=== PATIENT | male | born 1935 | race Caucasian/White ===

== ENCOUNTER 2016-05-14 05:06 | Emergency (ER) | payer MEDICARE ==
[~2016-05-14] VITALS: Ht 180.3 cm; Wt 133.2 kg
[~2016-05-14 05:06] MED LIST: ASPI81 PO; ATEN1TAB74 PO; CEFTR2P2 IV; CILO100T PO; DILA100C PO; ENAL20TA PO; GLUCTAB PO; HYDR-2768 PO; HYDR-3533 PO; OCUVTAB PO; SIMV20 PO; SITA100 PO; SUPETAB30 PO; TERA5 PO; Z.0.WALKERFRONT; [UNRECOGNIZED DRUG - OTHER] PO
[2016-05-14 05:14] VITALS: BP 157/70; PULSE 81; RESP 18; TEMP 97.7; O2SAT 95
[2016-05-14] MEDS ORDERED: SIMV80TA PO (05:44)
[2016-05-14] MEDS ORDERED: LISI-515 PO (05:44)
[2016-05-14] MEDS ORDERED: CILO100T PO (05:44)
[2016-05-14] MEDS ORDERED: GLIM2TAB PO (05:44)
[2016-05-14] MEDS ORDERED: METF1000 PO (05:44)
[2016-05-14] MEDS ORDERED: ATEN50TA PO (05:44)
[2016-05-14] MEDS ORDERED: AMLO5 PO (05:44)
[2016-05-14] MEDS ORDERED: TERA10CA3 PO (05:44)
[2016-05-14] MEDS ORDERED: DILA100C PO (05:44)
[2016-05-14] MEDS ORDERED: SITA1TAB2 PO (05:44)
[2016-05-14] MEDS ORDERED: ASPI81CH CHEW (05:44)
[2016-05-14] MEDS ORDERED: SODIUM CHLOR 0.9% 1000 ML INJ 1,000 ML IV SCH (05:45)
[2016-05-14] MEDS ORDERED: SODIUM CHLORIDE 0.9% FLUSH 5 ML FLUSH IVF PRN (05:45)
--- NOTE | 2016-05-14 05:55 | PD ---
HPI Chief Complaint: Abdominal Pain Time Seen by Provider: 05:32 Travel History International Travel<30 days: No Contact w/Intl Traveler<30days: No Traveled to known affect area: No History of Present Illness HPI The patient is an 81-year-old male that comes in per my because of constipation for an unknown amount of days. He cannot remember when his last bowel movement was but it wasn't within 3 days. He also had some urinary in that he is not urinating frequently. He states he did have some urgency but this is gone now. He denies any nausea, vomiting or diarrhea. He denies any fever. He does have a mild cough. He is to be a 3 pack a day smoker and smokes only several cigarettes daily now. It is been years since he has had a chest x-ray, he cannot remember when. A review of his old records available to me reveals he had a chest x-ray on October 2014 which showed minimal prominence of the heart in mild central pulmonary vascular congestion. He does have a history of coronary artery disease and is status post cardiac surgery. He is a [facility] patient of Dr. Medeiros. He denies any shortness of breath. His abdominal pain is minimal. He denies any bladder or abdominal distention. He had a ruptured appendix as a child but no other abdominal surgery since. PFSH Past Medical History Hx Anticoagulant Therapy: Yes Blood Disorders: No Depression: Yes Cancer: No Cardiac Catheterization: Yes Cardiovascular Problems: Yes High Cholesterol: Yes Chest Pain: Yes Coronary Artery Disease: Yes Diabetes: Yes Patient Takes Glucophage: Yes Diminished Hearing: No Endocrine: Yes Genitourinary: No Hypertension: Yes Immune Disorder: No Musculoskeletal: No Neurologic: Yes (DIZZINESS, TAKES DILANTIN) Psychiatric: Yes Reproductive: No Respiratory: No Immunizations Current: Yes Myocardial Infarction: Yes Seizures: Yes Tetanus Vaccination: Unknown Influenza Vaccination: No Past Surgical History Appendectomy: Yes Coronary Artery Bypass Graft: Yes (IN 2002) Social History Alcohol Use: Yes (OCC) Tobacco Use: Yes (04/10 PPD ) Substance Use: No Allergies-Medications (Allergen,Severity, Reaction): Coded Allergies: Neosporin (Verified Allergy, Mild, Rash, 05/14/16) Reported Meds & Prescriptions Reported Meds & Active Scripts Active Reported Simvastatin 80 Mg Tab 80 Mg PO DAILY Terazosin (Terazosin HCl) 10 Mg Cap 10 Mg PO HS Aspirin 81 Mg Chew 81 Mg CHEW DAILY Januvia (Sitagliptin Phosphate) 100 Mg Tab 100 Mg PO DAILY Atenolol 50 Mg Tab 50 Mg PO DAILY Norvasc (Amlodipine Besylate) 5 Mg Tab 5 Mg PO DAILY Cilostazol 100 Mg Tab 100 Mg PO BID Lisinopril 20 Mg Tab 20 Mg PO DAILY Metformin (Metformin HCl) 1,000 Mg Tab 1,000 Mg PO DAILY With a meal Glimepiride 2 Mg Tab 2 Mg PO BIDAC Dilantin (Phenytoin Extended) 100 Mg Cap 100 Mg PO TID [Prosterol] 1 Tab PO DAILY Review of Systems Except as stated in HPI: all other systems reviewed are Neg Physical Exam Narrative GENERAL: The patient is obese, alert, oriented 3 in minimal apparent distress dressed with his abdominal discomfort. His vital signs show blood pressure 157/ 70 but are otherwise normal. The patient appears mildly dehydrated. SKIN: Warm and dry. HEAD: Atraumatic. Normocephalic. EYES: Pupils equal and round. No scleral icterus. No injection or drainage. ENT: No nasal bleeding or discharge. Mucous membranes pink and moist. NECK: Trachea midline. No JVD. CARDIOVASCULAR: Regular rate and rhythm. No murmur appreciated. RESPIRATORY: No accessory muscle use. Scattered rhonchi are heard on the right side of the chest. The lungs are otherwise clear.. Breath sounds equal bilaterally. GASTROINTESTINAL: Abdomen soft, non-tender, nondistended. Hepatic and splenic margins not palpable. No guarding or rebound is present. There is a well- healed appendectomy scar and apparently this is his only surgery on the abdomen. MUSCULOSKELETAL: No obvious deformities. No clubbing. No cyanosis. No edema. NEUROLOGICAL: Awake and alert. No obvious cranial nerve deficits. Motor grossly within normal limits. Normal speech. PSYCHIATRIC: Appropriate mood and affect; insight and judgment normal. RECTAL EXAM: No masses or tenderness, stool is brown and guaiac-negative. There is a very high fecal impaction that I cannot break up digitally, it is too high. GENITOURINARY: Circumcised. Testes descended bilaterally without evidence of rotation. No lesions or erythema. No urethral discharge. The bladder is not distended. There is no tenderness over the bladder. Data Data Last Documented VS Vital Signs Date Time Temp Pulse Resp B/P Pulse Ox O2 Delivery O2 Flow Rate FiO2 05/14/16 06:29 80 18 155/69 95 Room Air 05/14/16 05:14 97.7 Orders Comprehensive Metabolic Panel (05/14/16 05:45) Urinalysis - C+S If Indicated (05/14/16 05:45) Iv Access Insert/Monitor (05/14/16 05:45) Ecg Monitoring (05/14/16 05:45) Oximetry (05/14/16 05:45) Sodium Chlor 0.9% 1000 Ml Inj (Ns 1000 M (05/14/16 05:45) Sodium Chloride 0.9% Flush (Ns Flush) (05/14/16 05:45) Chest, Pa & Lat (05/14/16 05:45) Complete Blood Count With Diff (05/14/16 05:45) Fleets Enema (Adult) (Fleets Enema (Adul (05/14/16 06:00) Magnesium Citrate Liq (Citroma Liq) (05/14/16 06:00) Labs Laboratory Tests Test 05/14/16 06:05 White Blood Count 12.0 TH/MM3 Red Blood Count 4.71 MIL/MM3 Hemoglobin 14.1 GM/DL Hematocrit 43.2 % Mean Corpuscular Volume 91.7 FL Mean Corpuscular Hemoglobin 29.9 PG Mean Corpuscular Hemoglobin 32.6 % Concent Red Cell Distribution Width 12.9 % Platelet Count 167 TH/MM3 Mean Platelet Volume 9.2 FL Neutrophils (%) (Auto) 91.2 % Lymphocytes (%) (Auto) 4.6 % Monocytes (%) (Auto) 3.7 % Eosinophils (%) (Auto) 0.3 % Basophils (%) (Auto) 0.2 % Neutrophils # (Auto) 11.0 TH/MM3 Lymphocytes # (Auto) 0.6 TH/MM3 Monocytes # (Auto) 0.4 TH/MM3 Eosinophils # (Auto) 0.0 TH/MM3 Basophils # (Auto) 0.0 TH/MM3 CBC Comment DIFF FINAL Differential Comment Sodium Level 142 MEQ/L Potassium Level 4.4 MEQ/L Chloride Level 106 MEQ/L [facility] Medical Decision Making Medical Screen Exam Complete: Yes Emergency Medical Condition: Yes Medical Record Reviewed: Yes Interpretation(s) The CBC shows a white count of 12,000 with 91% neutrophils but is otherwise unremarkable. Differential Diagnosis Constipation, dehydration, electrolyte disorder, GI bleed, urinary tract infection, renal insufficiency, anemia, pneumonia, lung tumor Narrative Course It is now 0642 and the patient passed a large amount of stool in his abdominal pain has resolved. Impression: Constipation resolved Plan: The patient will increase his liquid intake to avoid constipation in the future. Diagnosis Primary Impression: Constipation Additional Impression: Mild dehydration Additional Instructions: Drink more liquids including fruit juices. This may help your constipation. Follow-up with your primary care physician next week. Disposition: 01 DISCHARGE HOME Condition: Stable Russ Luu MD May 14, 2016 05:55
[2016-05-14 06:00] VITALS: RESP 18; O2SAT 94
[2016-05-14] MEDS ORDERED: MAGNESIUM CITRATE SOLN 300 ML BTL PO ONE (06:00)
[2016-05-14] MEDS ORDERED: SOD PHOSPHATE/SOD BIPHOSPHATE (ADULT) ENEMA 133ML PR ONE (06:00)
--- NOTE | 2016-05-14 06:07 | RADHPO ---
EXAM DATE/TIME: 05/14/2016 05:48 [place] COMPARISON: CHEST PA & LAT, October 30, 2014, 20:02. INDICATIONS : Cough. Congestion. MEDICAL HISTORY : Cardiovascular disease. SURGICAL HISTORY : CABG. ENCOUNTER: Initial ACUITY: 3 days PAIN SCORE: 5/10 LOCATION: Bilateral chest FINDINGS: Median sternotomy wires and cardiomegaly. No consolidation or effusion. Degenerative changes of the s pine are seen. Aortic calcification. CONCLUSION: No acute disease. Rinku Rosado MD on May 14, 2016 at 6:05 Board Certified Radiologist. This report was verified electronically.
[2016-05-14 06:29] VITALS: BP 155/69; PULSE 80; RESP 18; O2SAT 95
[2016-05-14 06:35] LABS: BASOPHIL % 0.2 % (0.0-2.0); EOSINOPHIL % 0.3 % (0.0-4.0); HEMATOCRIT 43.2 % (39.0-51.0); HEMO FLAGS DIFF FINAL; LYMPH % 4.6 % (9.0-44.0); LYMPHOCYTE # 0.6 TH/MM3 (1.0-4.8); MEAN CELL VOLUME 91.7 FL (80.0-100.0); MEAN CORPUSCULAR HEMOGLOBIN 29.9 PG (27.0-34.0); MEAN CORPUSCULAR HGB CONC 32.6 % (32.0-36.0); MONO % 3.7 % (0.0-8.0); NEUT % 91.2 % (16.0-70.0); PLATELET COUNT 167 TH/MM3 (150-450); RED BLOOD COUNT 4.71 MIL/MM3 (4.50-5.90); RED CELL DISTRIBUTION WIDTH 12.9 % (11.6-17.2)
[2016-05-14 06:54] LABS: CHLORIDE 106 MEQ/L (98-107); POTASSIUM 4.4 MEQ/L (3.5-5.1); SODIUM (NA) 142 MEQ/L (136-145)
[2016-05-14 06:58] LABS: ANION GAP 9 MEQ/L (5-15); BICARBONATE 27.3 MEQ/L (21.0-32.0); BLOOD UREA NITROGEN 26 MG/DL (7-18)
[2016-05-14 07:01] LABS: ALT (GPT) 15 U/L (12-78); AST (GOT) 18 U/L (15-37); GLOMERULAR FILTRATION RATE 49 ML/MIN (>89)
[2016-05-14 07:02] LABS: TOTAL BILIRUBIN ADULT 0.2 MG/DL (0.2-1.0)
[2016-05-14 07:03] LABS: ALKALINE PHOSPHATASE 88 U/L (45-117)
== END 2016-05-14 07:26 | disposition home or self-care (01) ==
LOC: PHED 05:06
DX: K59.00 Constipation, unspecified (principal); E86.0 Dehydration; E78.00 Pure hypercholesterolemia, unspecified; E11.9 Type 2 diabetes mellitus without complications; I10 Essential (primary) hypertension; I25.2 Old myocardial infarction; F17.210 Nicotine dependence, cigarettes, uncomplicated; Z95.1 Presence of aortocoronary bypass graft
CPT/HCPCS: 71020; 80053; 85025; 96360; 99283; J7030

== ENCOUNTER → 2017-06-13 | Outpatient (CLI) | payer MEDICARE ==
[~2017-06-13] VITALS: Ht 180.3 cm; Wt 119.1 kg
[~2017-06-13] MED LIST changes: +AMLO5 PO; +ASPI-516 CHEW; -ASPI81 PO; -ATEN1TAB74 PO; +ATEN50TA PO; -CEFTR2P2 IV; -ENAL20TA PO; +GLIM2TAB PO; -GLUCTAB PO; +HYALURONIDASE/LIDOCAINE/BUPIVACAINE 5 ML SYR LEFT EYE ONE; -HYDR-2768 PO; -HYDR-3533 PO; +LIDOCAINE HCL 1% PF 30 ML VIAL ONE; +LISI-515 PO; +METF1000 PO; +PROPARACAINE HCL 0.5% OPHT SOLN 15 ML BTL LEFT EYE ONE; +PROPOFOL 200 MG/20 ML AMP ONE; -SIMV20 PO; +SIMV80TA PO; -SITA100 PO; +SITA1TAB2 PO; +SODIUM CHLORID 0.9% 500 ML INJ 500 ML ONE; -SUPETAB30 PO; +TERA10CA3 PO; -TERA5 PO; +TOBRAMYCIN/DEXAMETHASONE OPTH OINT 3.5 GM TUBE ONE; -Z.0.WALKERFRONT
[2017-06-13 08:20] VITALS: PULSE 54
[2017-06-13] MEDS: CYCLOPENTOLATE HCL 1% OPHT SOLN 2 ML BTL LEFT EYE SCH ×4 (08:20→08:35)
[2017-06-13] MEDS: FLURBIPROFEN 0.03% OPHT SOLN 2.5 ML BTL LEFT EYE SCH ×4 (08:20→08:35)
[2017-06-13] MEDS: TROPICAMIDE 1% OPHT SOLN 15 ML BTL LEFT EYE SCH ×4 (08:20→08:35)
[2017-06-13] MEDS: PHENYLEPHRINE HCL 10% OPTH SOLN 5 ML BTL LEFT EYE SCH ×4 (08:20→08:35)
[2017-06-13 09:08] VITALS: PULSE 53
[2017-06-13 10:03] VITALS: TEMP 98
[2017-06-13 10:27] VITALS: BP 172/72; PULSE 63; RESP 16; O2SAT 97
--- NOTE | 2017-06-13 12:04 | MP ---
cc: Ankush Spears MD DATE OF OPERATION: 06/13/2017 [facility] #[id number] PREOPERATIVE DIAGNOSIS: Visually significant cataract, left eye. POSTOPERATIVE DIAGNOSIS: Visually significant cataract, left eye. OPERATION: Phacoemulsification with posterior chamber lens implantation, left eye. SURGEON: Ankush Spears MD ANESTHESIA: Retrobulbar with MAC. COMPLICATIONS: None. PROCEDURE: After informed consent was obtained, the patient was brought into the operative suite and placed on appropriate monitors by the Anesthesia Service. The patient had received a prior retrobulbar injection of local anesthetic by the Anesthesia Service in the holding area. The patient's operative eye was then prepped and draped in the usual sterile fashion. A wire lid speculum was placed. A paracentesis incision was made in the peripheral cornea with a 1 mm wil keratome. The anterior chamber was filled with viscoelastic. The anterior chamber was then entered through a stepped, clear corneal incision using a sharp 3 mm wil keratome. A circular tear capsulorrhexis was then made with a bent needle cystitome. Following hydrodissection of the lens nucleus with balanced saline, phaco-emulsification of the nucleus was performed using a modified chopping technique. The remaining cortex was removed with irrigation/aspiration. The prior two procedures were both performed using the handpieces of the [employer] phaco unit. The capsular bag was then filled with viscoelastic. The intraocular lens was then injected into the capsular bag and positioned. The type of intraocular lens and its power can be found elsewhere in this chart. The remaining viscoelastic was then removed from the anterior chamber with the IA handpiece. The anterior chamber was reformed with balanced saline. The wound was then closed securely with stromal hydration. It was found to be watertight to an intraocular pressure of at least 30 mmHg by palpation. A small amount of balanced salt solution was then removed through the paracentesis site and the intraocular pressure at the end of the case was approximately 20 by palpation. All drapes were then removed. TobraDex ointment was then placed in the eye, which was closed beneath a semi-pressure patch dressing. The patient tolerated this procedure well and left the operating room awake and alert. The patient is to follow-up in my office in the morning. Ankush Spears MD TCSkyler/LEONEL , 09:59 AM , 10:11 AM
== END ==
LOC: PHSDC 07:05
PROVIDERS: ATTEND Optometrist Occupational Vision
DX: H25.812 Combined forms of age-related cataract, left eye (principal)
CPT/HCPCS: 00142; 66984; J7040; V2632

== ENCOUNTER 2017-09-13 11:12 | Inpatient (IN) ==
[2017-10-06] MEDS ORDERED: Dextrose 50% in Water 50 ML Vial IV.PUSH PRN (00:01)
[2017-10-06] MEDS ORDERED: Naloxone Inj 0.4 MG/ML Vial IV.PUSH PRN (00:01)
[2017-10-06] MEDS ORDERED: Sod Phosphate/Sod Biphosphate (Adult) Enema 133 ML Bottle RECTAL PRN (00:01)
[2017-10-06] MEDS ORDERED: Acetaminophen 325 MG Tablet PO PRN (00:01)
[2017-10-06] MEDS ORDERED: Heparin Central Flush 100 UNIT/ML 5 ML Vial IV.FLUSH PRN ×2 (00:01)
[2017-10-06] MEDS: Metoprolol Tartrate 25 MG Tablet PO SCH ×3 (05:32→21:00)
[2017-10-06] MEDS: Insulin NovoLOG Aspart Correctional Sugar Inj SQ SCH ×5 (05:35→20:49)
[2017-10-06] MEDS ORDERED: Albumin Human 25% Inj 50 ML IV.SIG SCH (08:00)
[2017-10-06] MEDS: Allopurinol 300 MG Tablet PO SCH (08:52)
[2017-10-06] MEDS: Ferrous Sulfate 325 MG Tablet PO SCH ×2 (08:53→20:48)
[2017-10-06] MEDS: Phenytoin Sodium 100 MG Capsule PO SCH ×2 (08:53→20:48)
[2017-10-06] MEDS: Enoxaparin Inj 30 MG/0.3 ML Syringe SQ SCH (09:05)
--- NOTE | 2017-10-06 09:41 | XR ---
EXAM DATE: 10/06/2017 9:39 AM EDT AGE/SEX: 82 years / Male INDICATIONS: Pain. CLINICAL DATA: This is the patient's subsequent encounter. Patient reports that signs and symptoms h ave been present for 1 day and indicates a pain score of 0/10. MEDICAL/SURGICAL HISTORY: . Carcinoma, bladder. Diabetes. Hypertension. Seizures . Myocardial i nfarction . . Appendectomy. CABG. Infusaport. COMPARISON: No prior exams available for comparison. FINDINGS: Lung bases are clear. Minimal gastric distention is evident with apparent pill in the stomach. Minimal transverse colon gas is evident. Scattered small bowel gas is noted. There is no free air. Minimal parenchymal changes left base. CONCLUSION: Minimal parenchymal changes left base. Mild gaseous distention of stomach Minimal transverse colon gas otherwise bowel gas pattern unremarkable. Electronically signed by: Partha Ugalde MD 10/06/2017 9:40 AM EDT
--- NOTE | 2017-10-06 11:17 | P.PN ---
Subjective Interval history: 82-year-old male with a past medical history of chronic kidney disease, hypertension, ischemic heart disease, history of coronary artery bypass grafting , diabetes mellitus, peripheral vascular disease, hyperlipidemia, bladder cancer , chronic kidney disease, was admitted with a lung mass, pleural effusion and hypoxemia.Nephrology was called to see the patient because of elevated BUN and creatinine. The patient has a known history of renal disease. He has been following with me in the office and last time he was seen was on 08/15. At that time, his creatinine was around 1.25, with a GFR of 53. The patient has been admitted here with a creatinine of 1.27-1.8, it went up to 1.9 - 2.1. 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 A thoracentesis was negative for any malignant cells. 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 The patient was started on carboplatin. Patient is alert, sitting on chair, no SOB, on room air, not in distress. Physical Exam Vital signs: Vital Signs 10/06/17 02:37 10/06/17 04:58 10/06/17 07:27 Temperature 97.6 F Pulse Rate 80 Respiratory Rate 16 Blood Pressure 135/64 Pulse Oximetry 96 100 96 10/06/17 09:06 Temperature 98.2 F Pulse Rate 124 H Respiratory Rate Blood Pressure 140/60 Pulse Oximetry 95 Intake & Output 10/05/17 10/06/17 10/06/17 18:59 06:59 18:59 Intake Total 240 / 240 Output Total 850 / 850 Balance -610 / -610 Weight 115.6 kg Intake: Oral 240 / 240 Output: Urine Amount (Catheter) 750 / 750 Indwelling Urethral Catheter 750 / 750 Chest Tube Drainage 100 / 100 #1 Left Lower Pleural 100 / 100 Other: Date of Last Bowel Movement 10/06/18 # Bowel Movements 2 - Constitutional no acute distress - Routine HEENT Exam Head: Present: normocephalic Eye: Present: EOMI ENT: Present: mucous membranes moist - Routine Neck Exam Present: supple, JVD, trachea midline - Routine Respiratory Exam Present: decreased breath sounds, rales, rhonchi, diminished air movement - Routine Cardiovascular Exam Present: S1, S2 - Routine Abdominal Exam Present: soft, normoactive bowel sounds, distended - Routine Extremities Exam Present: edema (moderate bilateral) - Routine Neurological Exam Present: alert, oriented X3 - Urinary Catheter Management Indwelling Urethral Catheter Cath placed during this visit: yes Urethral indwelling: Yes Reason for continuing: Chronic Urinary Retention Insertion date: 09/29/17 Insertion time: 13:35 Results - Labs CBC & Chem 7: 10/08/17 04:30 10/08/17 04:30 Laboratory Results - last 24 hr 10/03/17 10/03/17 10/04/17 04:55 04:55 04:50 WBC 7.1 RBC 3.23 L Hgb 9.6 L Hct 28.7 L MCV 88.8 MCH 29.7 MCHC 33.4 RDW 14.5 Plt Count 146 L MPV 9.5 Neut % (Auto) 87.9 H Lymph % (Auto) 6.6 L [place] % (Auto) 3.6 Eos % (Auto) 1.3 Baso % (Auto) 0.6 Neut # (Auto) 6.3 Lymph # (Auto) 0.5 L [place] # (Auto) 0.3 Eos # (Auto) 0.1 Baso # (Auto) 0.0 CBC Comment DIFF FINAL Sodium 142 143 Potassium 3.8 3.9 Chloride 108 H 108 H Carbon Dioxide 24.0 26.8 Anion Gap 10 8 BUN 68 H D 59 H Creatinine 1.40 H 1.30 Estimated GFR 49 L Random Glucose 145 H 143 H Calcium 8.2 L 8.3 L Phosphorus 2.7 D 2.2 L Magnesium 2.2 1.9 Total Bilirubin 0.5 0.4 AST 72 H 51 H ALT 14 12 Alkaline Phosphatase 142 H 138 H Lactate Dehydrogenase 1332 H 1032 H Total Protein 5.7 L 5.8 L Albumin 2.8 L 2.9 L 10/04/17 10/05/17 10/05/17 04:50 05:00 05:00 WBC 5.4 5.7 RBC 3.19 L 3.00 L Hgb 9.6 L 9.0 L Hct 28.7 L 26.7 L MCV 89.9 89.0 MCH 29.9 30.0 MCHC 33.3 33.7 RDW 14.0 14.1 Plt Count 142 L 135 L MPV 9.3 9.5 Neut % (Auto) 80.1 H 83.5 H Lymph % (Auto) 13.5 10.4 [place] % (Auto) 4.6 4.4 Eos % (Auto) 1.3 1.0 Baso % (Auto) 0.5 0.7 Neut # (Auto) 4.4 4.7 Lymph # (Auto) 0.7 L 0.6 L [place] # (Auto) 0.3 0.2 Eos # (Auto) 0.1 0.1 Baso # (Auto) 0.0 0.0 CBC Comment DIFF FINAL DIFF FINAL Sodium 143 Potassium 3.8 Chloride 106 Carbon Dioxide 30.0 Anion Gap 7 BUN 52 H Creatinine 1.33 H Estimated GFR 51 L Random Glucose 140 H Calcium 8.4 L Phosphorus 2.3 L Magnesium 1.8 Total Bilirubin 0.3 AST 39 H ALT 11 L Alkaline Phosphatase 131 H Lactate Dehydrogenase 819 H Total Protein 5.6 L Albumin 2.8 L - Imaging Impressions Abdomen X-Ray 10/06/17 00:00 CONCLUSION: Minimal parenchymal changes left base. Mild gaseous distention of stomach Minimal transverse colon gas otherwise bowel gas pattern unremarkable. Assessment and Plan - Plan (1) Acute renal insufficiency ICD Codes: N28.9 - Acute renal insufficiency Status: Acute Plan: Acute kidney injury either related to prerenal azotemia or possibility of ATN either from chemotherapy or hypoxemia, but there is no documented hypotension. 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 Good urinary output. K+ stable, Creatinine improving at 1.3 Continue Lasix to 40mg IV BID and albumin to help with edema Continue metolazone BID. Avoid any nephrotoxins. Will continue to monitor urinary output and bmp. (2) Bilateral lower extremity edema ICD Codes: R60.0 - Bilateral lower extremity edema Status: Acute Plan: Elevate legs Luis Angel hose on Lasix to 40mg IV BID and albumin Metolazone (3) Lung mass ICD Codes: R91.8 - Other nonspecific abnormal finding of lung field Status: Acute Plan: Oncology managing Started chemotherapy on 09/25 (4) Pleural effusion ICD Codes: J90 - Pleural effusion, not elsewhere classified Plan: CT and placement of chest tube for large left pleural effusion (Amanda Elizondo) Problem List: (1) Acute renal insufficiency ICD Codes: N28.9 - Acute renal insufficiency Status: Acute Plan: Acute kidney injury either related to prerenal azotemia or possibility of ATN either from chemotherapy or hypoxemia, but there is no documented hypotension. 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 Good urinary output. K+ stable, Creatinine improving at 1.3
[2017-10-06] MEDS: Albumin Human 25% Inj 50 ML IV.SIG SCH (16:47)
--- NOTE | 2017-10-06 18:50 | P.PNIM ---
Subjective Interval history: No new complaints. Physical Exam Vital signs: Vital Signs 10/06/17 02:37 10/06/17 04:58 10/06/17 07:27 Temperature 97.6 F Pulse Rate 80 Respiratory Rate 16 Blood Pressure 135/64 Pulse Oximetry 96 100 96 10/06/17 09:06 10/06/17 14:00 10/06/17 16:32 Temperature 98.2 F 97.8 F 98.7 F Pulse Rate 124 H 107 H 83 Respiratory Rate 20 20 Blood Pressure 140/60 113/52 L 128/52 L Pulse Oximetry 95 100 92 L Intake & Output 10/05/17 10/06/17 10/06/17 18:59 06:59 18:59 Intake Total 240 / 240 Output Total 850 / 850 Balance -610 / -610 Weight 115.6 kg Intake: Oral 240 / 240 Output: Urine Amount (Catheter) 750 / 750 Indwelling Urethral Catheter 750 / 750 Chest Tube Drainage 100 / 100 #1 Left Lower Pleural 100 / 100 Other: Date of Last Bowel Movement 10/06/18 # Bowel Movements 2 Narrative: GENERAL: This is a well-nourished, well-developed patient, in no apparent distress. CARDIOVASCULAR: Regular rate and rhythm without murmurs, gallops, or rubs. RESPIRATORY: Clear to auscultation. Breath sounds equal bilaterally. No wheezes , rales, or rhonchi. GASTROINTESTINAL: Abdomen soft, non-tender, nondistended. Normal active bowel sounds MUSCULOSKELETAL: Extremities without clubbing, cyanosis, or edema. NEURO: Alert & Oriented x4 to person, place, time, situation. Moves all ext x4 - Urinary Catheter Management Indwelling Urethral Catheter Cath placed during this visit: yes Urethral indwelling: Yes Insertion date: 09/29/17 Insertion time: 13:35 Results - Labs CBC & Chem 7: 10/08/17 04:30 10/08/17 04:30 Laboratory Results - last 24 hr 10/03/17 10/03/17 10/04/17 04:55 04:55 04:50 WBC 7.1 RBC 3.23 L Hgb 9.6 L Hct 28.7 L MCV 88.8 MCH 29.7 MCHC 33.4 RDW 14.5 Plt Count 146 L MPV 9.5 Neut % (Auto) 87.9 H Lymph % (Auto) 6.6 L [place] % (Auto) 3.6 Eos % (Auto) 1.3 Baso % (Auto) 0.6 Neut # (Auto) 6.3 Lymph # (Auto) 0.5 L [place] # (Auto) 0.3 Eos # (Auto) 0.1 Baso # (Auto) 0.0 CBC Comment DIFF FINAL Sodium 142 143 Potassium 3.8 3.9 Chloride 108 H 108 H Carbon Dioxide 24.0 26.8 Anion Gap 10 8 BUN 68 H D 59 H Creatinine 1.40 H 1.30 Estimated GFR 49 L POC Glucose Random Glucose 145 H 143 H Calcium 8.2 L 8.3 L Phosphorus 2.7 D 2.2 L Magnesium 2.2 1.9 Total Bilirubin 0.5 0.4 AST 72 H 51 H ALT 14 12 Alkaline Phosphatase 142 H 138 H Lactate Dehydrogenase 1332 H 1032 H Total Protein 5.7 L 5.8 L Albumin 2.8 L 2.9 L 10/04/17 10/05/17 10/05/17 04:50 05:00 05:00 WBC 5.4 5.7 RBC 3.19 L 3.00 L Hgb 9.6 L 9.0 L Hct 28.7 L 26.7 L MCV 89.9 89.0 MCH 29.9 30.0 MCHC 33.3 33.7 RDW 14.0 14.1 Plt Count 142 L 135 L MPV 9.3 9.5 Neut % (Auto) 80.1 H 83.5 H Lymph % (Auto) 13.5 10.4 [place] % (Auto) 4.6 4.4 Eos % (Auto) 1.3 1.0 Baso % (Auto) 0.5 0.7 Neut # (Auto) 4.4 4.7 Lymph # (Auto) 0.7 L 0.6 L [place] # (Auto) 0.3 0.2 Eos # (Auto) 0.1 0.1 Baso # (Auto) 0.0 0.0 CBC Comment DIFF FINAL DIFF FINAL Sodium 143 Potassium 3.8 Chloride 106 Carbon Dioxide 30.0 Anion Gap 7 BUN 52 H Creatinine 1.33 H Estimated GFR 51 L POC Glucose Random Glucose 140 H Calcium 8.4 L Phosphorus 2.3 L Magnesium 1.8 Total Bilirubin 0.3 AST 39 H ALT 11 L Alkaline Phosphatase 131 H Lactate Dehydrogenase 819 H Total Protein 5.6 L Albumin 2.8 L 10/06/17 10/06/17 12:17 16:45 WBC RBC Hgb Hct MCV MCH MCHC RDW Plt Count MPV Neut % (Auto) Lymph % (Auto) [place] % (Auto) Eos % (Auto) Baso % (Auto) Neut # (Auto) Lymph # (Auto) [place] # (Auto) Eos # (Auto) Baso # (Auto) CBC Comment Sodium Potassium Chloride Carbon Dioxide Anion Gap BUN Creatinine Estimated GFR POC Glucose 387 H 142 H Random Glucose Calcium Phosphorus Magnesium Total Bilirubin AST ALT Alkaline Phosphatase Lactate Dehydrogenase Total Protein Albumin - Imaging ImpressionsAbdomen X-Ray 10/06/17 00:00 abd x-ray (10/06/17) Minimal parenchymal changes left base. Mild gaseous distention of stomach Minimal transverse colon gas otherwise bowel gas pattern unremarkable. Chest X-Ray 10/02/17 1. Inferior left chest tube in place with significantly improved aeration of the left lung. 2. Residual left mid to lower lung zone pleural-parenchymal opacities largely reflecting patient's known mass. Chest Tube Insertion 10/01/17 1. Uncomplicated chest tube placement for treatment of recurrent malignant pleural effusion. Tentative plan for future pleurodesis. [place] Insertion 09/27/17 1. Uncomplicated ultrasound and fluoroscopic guided implanted central venous p ort catheter placement as described in detail above. An 8 [employer] port wa s placed. Thoracentesis 09/24/[address]-guided left thoracentesis with removal of 1.9 L of fluid. Head CT 09/24/17 1. Diffuse bilateral cortical atrophy. 2. No focal or acute intracranial pathology. Abdomen/Pelvis CT 09/23/17 1. Large left pleural effusion with near complete consolidation of the left lung. 2. Multiple hypodensities scattered throughout the liver concerning for metast atic disease 3. Both adrenal glands are enlarged. Lung Scan-[facility] Nuclear Medicine 09/15/17 1. Intermediate probability of pulmonary embolus with virtually no perfusion o r ventilation of the left lung likely related to encasement on the left hilar s tructures from mass at left hilum. Lower Extremity Ultrasound 09/14/17 1. The study is negative for bilateral lower extremity deep venous thrombosis. 2. Right-sided popliteal cyst. Chest CT 09/13/17 1. Masslike area seen in the left upper lobe extending to the left hilar regio n with left mediastinal and hilar adenopathy and suspected hepatic metastases. A primary central lung carcinoma would be suspected. 2. Moderate left pleural effusion. 3. Left adrenal gland enlargement. This is nonspecific. An adenoma or metastat ic lesion could have this appearance. Assessment and Plan - Assessment (1) Lung mass Code(s): R91.8 - Other nonspecific abnormal finding of lung field Status: Acute Plan: __ (1) Lung mass ICD Codes: R91.8 - Other nonspecific abnormal finding of lung field Status: Acute Plan: Lung mass with pleural effusion This is an 82-year-old male patient with an extensive tobacco abuse history presents to [facility] with complaints of shortness of breath times 5 days prior to that was treated for pneumonia in [place] -CT of the chest reviewed and reveals masslike area seen in the left upper lobe extending to the left hilar region with left mediastinal and hilar adenopathy and suspected hepatic metastasis. A primary central lung carcinoma would be suspected. Moderate left pleural effusion. Left adrenal gland enlargement. This is nonspecific. No adrenal or metastatic lesion could have this appearance. -Interventional radiology consulted for ultrasound-guided thoracentesis -Total volume of 2600 mL's of clear lópez fluid was removed 09/13/2017 -Post thoracentesis chest x-ray reveals no pneumothorax following left thoracentesis Pleural fluid LDH 424 pleural fluid total protein 3.1 Serum LDH 691 serum total protein 6.7 -Duonebs scheduled and as needed - D dimmer elevated, US BLE negative for DVT - VQ scan reviewed with radiology and felt to be neg for PE - cytology from pleural effusion negative for malignancy - Pt underwent Bronchoscopy (09/19/17) with Dr. Stephan Elizabeth (09/19/17) - irreg lesion nearly obstructing the left upper lobe bronchus - left lower bronchus with bronchitis changes. 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 - Pt, , and 2 daughters updated at the bedside regarding pathology results ( 09/24/17) - Case d/w Dr. Morin (09/24/17) - poor prognosis - possible one year survivability with palliative chemotherapy -chemotherapy 09/25/17 . chemo held due to tumor lysis and cain/ckd - CT A/P (09/23/17) 1. Large left pleural effusion with near complete consolidation of the left lung. 2. Multiple hypodensities scattered throughout the liver concerning for metasatic disease 3. Both adrenal glands are enlarged. 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 - s/p left chest tube on 10/01 for malignant pleural effusion - MARLEY yi - dvt prophylaxis. supportive care - snf once chest tube removed and then next chemo in about 2 weeks. possible pleurodesis - consider pleurodesis with IR or Pulm Med on Saturday. wound care for lower ext denuded skin/blisters. imani wraps placed. pt getting iv albumen/lasix. family will support hospice if pt decides...but he wants to remain aggressive. - 10/06/17 - Pt interviewed and examined - Will discuss case with Pulm Medicine 10/07. Consider talc pleurodesis vs pleurovac catheter (2) Bilateral lower extremity edema ICD Codes: R60.0 - Bilateral lower extremity edema Status: Acute Plan: - MARLEY yi (3) CAD (coronary artery disease) ICD Codes: I25.10 - CAD (coronary artery disease) Status: Chronic Plan: - coronary artery disease status post VT and status post four-vessel CABG 2001 - ASA, pravachol, atenolol (4) Diabetes mellitus ICD Codes: E11.9 - Type 2 diabetes mellitus without complications Status: Chronic Plan: - Amaryl, Januvia - SSI (5) Tobacco abuse ICD Codes: Z72.0 - Tobacco use Plan: Patient counselled encouraged to abstain (6) Seizure ICD Codes: R56.9 - Unspecified convulsions Status: Chronic Plan: Continue patient's home phenytoin 200 mg AM and 100mg QHS (7) Hyperlipidemia ICD Codes: E78.5 - Hyperlipidemia, unspecified Status: Chronic Plan: Continue simvastatin 80 mg p.o. daily (8) Bladder cancer ICD Codes: C67.9 - Malignant neoplasm of bladder, unspecified Plan: bladder cancer status post cystoscopy with removal of tumor
[2017-10-06] MEDS: Temazepam 15 MG Capsule PO SCH (20:49)
[2017-10-07] MEDS: Metoprolol Tartrate 25 MG Tablet PO SCH ×3 (05:31→21:45)
--- NOTE | 2017-10-07 08:06 | XR ---
EXAM DATE: 10/07/2017 8:01 AM EDT AGE/SEX: 82 years / Male INDICATIONS: Shortness of breath. Effusion. CLINICAL DATA: This is the patient's subsequent encounter. Patient reports that signs and symptoms h ave been present for 3 weeks and indicates a pain score of 0/10. MEDICAL/SURGICAL HISTORY: . Carcinoma, bladder. Diabetes. Hypertension. Seizures . Myocardial i nfarction . . Appendectomy. CABG. Infusaport. COMPARISON: [facility] [place], CHEST PA & LAT, 09/28/2017. . FINDINGS: Stable right IJ [id number]. Stable inferior left-sided chest tube placement with near complete res olution of pleural-parenchymal opacities on the left. Minimal airspace disease in the right lower toan g zone. Cardiomediastinal contours are stable. Remainder of the exam is unchanged. CONCLUSION: 1. Stable left-sided chest tube in place with near resolution of left-sided pleural-parenchymal dise ase. 2. Minimal right lower lung zone airspace disease, likely atelectasis. Electronically signed by: López Maldonado MD 10/07/2017 8:05 AM EDT
--- NOTE | 2017-10-07 09:07 | P.PNIM ---
Subjective Interval history: No new complaints BP is stable Pt had about 150mL of pleural fluid out from chest tube in the last 24 hours Physical Exam Vital signs: Vital Signs 10/06/17 09:06 10/06/17 14:00 10/06/17 16:32 Temperature 98.2 F 97.8 F 98.7 F Pulse Rate 124 H 107 H 83 Respiratory Rate 20 20 Blood Pressure 140/60 113/52 L 128/52 L Pulse Oximetry 95 100 92 L 10/06/17 20:30 10/07/17 00:00 10/07/17 05:19 Temperature 98.1 F 98.6 F 97.9 F Pulse Rate 97 H 78 86 Respiratory Rate 18 15 17 Blood Pressure 133/70 122/46 L 109/56 L Pulse Oximetry 99 100 95 10/07/17 08:17 Temperature 98 F Pulse Rate 76 Respiratory Rate 16 Blood Pressure 120/50 L Pulse Oximetry 95 Intake & Output 10/06/17 10/07/17 10/07/17 18:59 06:59 18:59 Intake Total 960 / 960 Output Total 750 / 750 Balance 960 / 960 -750 / -750 Weight 115.6 kg 112.3 kg Intake: Oral 960 / 960 Output: Urine Amount (Catheter) 600 / 600 Indwelling Urethral Catheter 600 / 600 Chest Tube Drainage 150 / 150 #1 Left Lower Pleural 150 / 150 Other: Bladder Irrigation Fluid - Amount Drained Indwelling Urethral Catheter 1,350 Date of Last Bowel Movement 10/06/17 10/06/17 # Bowel Movements 2 Narrative: GENERAL: NAD, AAOx3 SKIN: Warm and dry. NECK: Supple, trachea midline. CARDIO: Regular RESP: Breath sounds equal bilaterally. CT in left chest ABD: Abdomen soft, non-tender, nondistended. EXT: No cyanosis, or edema. - Urinary Catheter Management Indwelling Urethral Catheter Cath placed during this visit: yes Urethral indwelling: Yes Reason for continuing: Hourly intake/output Insertion date: 09/29/17 Insertion time: 13:35 Results - Labs CBC & Chem 7: 10/05/17 05:00 10/07/17 10:50 Laboratory Results - last 24 hr 10/06/17 10/06/17 10/06/17 12:17 16:45 20:34 POC Glucose 387 H 142 H 171 H 10/07/17 08:00 POC Glucose 151 H - Imaging Impressions Abdomen X-Ray 10/06/17 00:00 CONCLUSION: Minimal parenchymal changes left base. Mild gaseous distention of stomach Minimal transverse colon gas otherwise bowel gas pattern unremarkable. Chest X-Ray 10/07/17 08:00 CONCLUSION: 1. Stable left-sided chest tube in place with near resolution of left-sided pleural-parenchymal disease. 2. Minimal right lower lung zone airspace disease, likely atelectasis. Assessment and Plan - Assessment (1) Lung mass Code(s): R91.8 - Other nonspecific abnormal finding of lung field Status: Acute Plan: __ Lung mass with pleural effusion - This is an 82-year-old male patient with an extensive tobacco abuse history presents to [facility] [place] with complaints of shortness of breath times 5 days prior to that was treated for pneumonia in [place] - CT of the chest reviewed and reveals masslike area seen in the left upper lobe extending to the left hilar region with left mediastinal and hilar adenopathy and suspected hepatic metastasis. A primary central lung carcinoma would be suspected. Moderate left pleural effusion. Left adrenal gland enlargement. This is nonspecific. No adrenal or metastatic lesion could have this appearance. - Pt underwent ultrasound-guided thoracentesis (09/13/2017) --> Total volume of 2600 mL's of clear lópez fluid was removed - Post thoracentesis chest x-ray reveals no pneumothorax following left thoracentesis - Pleural fluid LDH 424 pleural fluid total protein 3.1 - Serum LDH 691 serum total protein 6.7 - Duonebs scheduled and as needed - D dimmer elevated, US BLE negative for DVT - VQ scan reviewed with radiology and felt to be neg for PE - Cytology from pleural effusion negative for malignancy - Pt underwent Bronchoscopy (09/19/17) with Dr. Stephan Elizabeth (09/19/17) - irreg lesion nearly obstructing the left upper lobe bronchus - left lower bronchus with bronchitis changes. 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 - Pt, , and 2 daughters updated at the bedside regarding pathology results ( 09/24/17) - Case d/w Dr. Morin (09/24/17) - poor prognosis - possible one year survivability with palliative chemotherapy -chemotherapy 09/25/17 . chemo held due to tumor lysis and cain/ckd - CT A/P (09/23/17) 1. Large left pleural effusion with near complete consolidation of the left lung. 2. Multiple hyperdensities scattered throughout the liver concerning for metasatic disease 3. Both adrenal glands are enlarged. 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 - s/p left chest tube on 10/01 for malignant pleural effusion - Cont. wound care for lower ext denuded skin/blisters. imani wraps placed. pt getting IV Albumin/Lasix. - MARLEY hose - DVT prophylaxis. - Plan for SNF once chest tube removed and then next chemo in about 2 weeks. - Will discuss case with Pulm Medicine today. Consider talc pleurodesis vs pleurovac catheter - Family will support hospice if pt decides, but he wants to remain aggressive. Bilateral lower extremity edema - MARLEY hose CAD (coronary artery disease) - Coronary artery disease status post ID and status post four-vessel CABG 2001 - ASA, Pravachol, Atenolol Diabetes mellitus - Amaryl, Januvia - SSI Tobacco abuse - Patient counselled encouraged to abstain Seizure - Continue patient's home phenytoin 200 mg AM and 100mg QHS Hyperlipidemia - Continue simvastatin 80 mg p.o. daily Bladder cancer - Bladder cancer status post cystoscopy with removal of tumor - Attending Attestation Patient examined. Assessment and plan formulated with Lena Walsh PA-C. I agree with the above..
[2017-10-07] MEDS: Albumin Human 25% Inj 50 ML IV.SIG SCH ×2 (09:10→17:43)
[2017-10-07] MEDS: Enoxaparin Inj 30 MG/0.3 ML Syringe SQ SCH (09:12)
[2017-10-07] MEDS: Allopurinol 300 MG Tablet PO SCH (09:13)
[2017-10-07] MEDS: Phenytoin Sodium 100 MG Capsule PO SCH ×2 (09:13→20:04)
[2017-10-07] MEDS: Ferrous Sulfate 325 MG Tablet PO SCH ×2 (09:15→20:03)
[2017-10-07 11:46] LABS: Alanine Aminotransferase 20 U/L (12-78); Albumin 3.2 g/dL (3.4-5.0); Anion Gap 7 meq/L (5-15); Aspartate Aminotransferase 43 U/L (15-37); Blood Urea Nitrogen 47 mg/dL (7-18); Calcium 8.8 mg/dL (8.5-10.1); Carbon Dioxide 31.6 meq/L (21.0-32.0); Chloride 103 meq/L (98-107); Glomerular Filtration Rate 43 mL/min (>89); Glucose,Random 221 mg/dL (74-106); Potassium 4.2 meq/L (3.5-5.1); Sodium 142 meq/L (136-145)
[2017-10-07 11:47] LABS: Alkaline Phosphatase 138 U/L (45-117); Total Protein 6.2 g/dL (6.4-8.2)
--- NOTE | 2017-10-07 13:13 | P.PNNP ---
Subjective Interval history: Denies any shortness of breath. CT to left chest wall. Creatinine slightly increased at 1.55 <Amanda Elizondo - Last Filed: 10/07/17 13:08> Physical Exam Vital signs: Vital Signs 10/06/17 14:00 10/06/17 16:32 10/06/17 20:30 Temperature 97.8 F 98.7 F 98.1 F Pulse Rate 107 H 83 97 H Respiratory Rate 20 20 18 Blood Pressure 113/52 L 128/52 L 133/70 Pulse Oximetry 100 92 L 99 10/07/17 00:00 10/07/17 05:19 10/07/17 08:00 Temperature 98.6 F 97.9 F Pulse Rate 78 86 Respiratory Rate 15 17 Blood Pressure 122/46 L 109/56 L Pulse Oximetry 100 95 96 10/07/17 08:17 Temperature 98 F Pulse Rate 76 Respiratory Rate 16 Blood Pressure 120/50 L Pulse Oximetry 95 Intake & Output 10/06/17 10/07/17 10/07/17 18:59 06:59 18:59 Intake Total 1010 / 1010 Output Total 750 / 750 Balance 1010 / 1010 -750 / -750 Weight 115.6 kg 112.3 kg Intake: IV 50 / 50 Flexbumin 25% Inj 50 ML @ 60 50 / 50 mls/hr IV.SIG BID@0840,1740 [facility] Rx#:[id number] Oral 960 / 960 Output: Urine Amount (Catheter) 600 / 600 Indwelling Urethral Catheter 600 / 600 Chest Tube Drainage 150 / 150 #1 Left Lower Pleural 150 / 150 Other: Bladder Irrigation Fluid - Amount Drained Indwelling Urethral Catheter 1,350 Date of Last Bowel Movement 10/06/17 10/06/17 10/06/17 # Bowel Movements 2 - Constitutional no acute distress - Routine HEENT Exam Head: Present: normocephalic ENT: Present: mucous membranes moist - Routine Neck Exam Present: supple. Absent: JVD - Routine Respiratory Exam Present: decreased breath sounds. Absent: rales, rhonchi Comments: chest tube - Routine Cardiovascular Exam Present: RRR - Routine Abdominal Exam Present: soft, normoactive bowel sounds Comments: large - Routine Extremities Exam Present: edema Comments: bilateral lower extremity - Routine Neurological Exam Present: alert, oriented X3 - Detailed Neurological Exam: Coma Scale Eye Opening: Spontaneous - Routine Psychiatric Exam Present: cooperative - Urinary Catheter Management Indwelling Urethral Catheter Cath placed during this visit: yes Urethral indwelling: Yes Reason for continuing: Acute urinary retention Insertion date: 09/29/17 Insertion time: 13:35 <Amanda Elizondo - Last Filed: 10/07/17 13:08> Vital signs: Vital Signs 10/07/17 00:00 10/07/17 05:19 10/07/17 08:00 Temperature 98.6 F 97.9 F Pulse Rate 78 86 Respiratory Rate 15 17 Blood Pressure 122/46 L 109/56 L Pulse Oximetry 100 95 96 10/07/17 08:17 10/07/17 12:00 10/07/17 16:00 Temperature 98 F 98.2 F 98.8 F Pulse Rate 76 110 H 73 Respiratory Rate 16 18 18 Blood Pressure 120/50 L 110/55 L 116/51 L Pulse Oximetry 95 96 96 10/07/17 20:00 Temperature 98.3 F Pulse Rate 107 H Respiratory Rate 18 Blood Pressure 127/57 L Pulse Oximetry 100 Intake & Output 10/07/17 10/07/17 10/08/17 06:59 18:59 06:59 Intake Total 850 / 850 Output Total 750 / 750 1350 / 1350 Balance -750 / -750 -500 / -500 Weight 112.3 kg Intake: IV 50 / 50 Flexbumin 25% Inj 50 ML @ 60 50 / 50 mls/hr IV.SIG BID@0840,1740 [facility] Rx#:[id number] Oral 800 / 800 Output: Urine 1350 / 1350 Urine Amount (Catheter) 600 / 600 Indwelling Urethral Catheter 600 / 600 Chest Tube Drainage 150 / 150 #1 Left Lower Pleural 150 / 150 Other: Date of Last Bowel Movement 10/06/17 10/07/17 # Bowel Movements 1 - Urinary Catheter Management Indwelling Urethral Catheter Cath placed during this visit: no <Dennis Saenz - Last Filed: 10/07/17 22:29> Assessment and Plan - Plan Acute renal insufficiency ICD Codes: N28.9 - Acute renal insufficiency Status: Acute Plan: Acute kidney injury either related to prerenal azotemia or possibility of ATN either from chemotherapy or hypoxemia, but there is no documented hypotension. 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 Good urinary output. K+ stable, Creatinine slightly increased at1.55 Continue Lasix to 40mg IV BID and albumin to help with edema Continue metolazone BID. Avoid any nephrotoxins. Will continue to monitor urinary output and bmp. If creatinine continues to rise tomorrow will reduce diuretics (2) Bilateral lower extremity edema ICD Codes: R60.0 - Bilateral lower extremity edema Status: Acute Plan: Elevate legs Luis Angel hose on Lasix to 40mg IV BID and albumin Metolazone (3) Lung mass ICD Codes: R91.8 - Other nonspecific abnormal finding of lung field Status: Acute Plan: Oncology managing Started chemotherapy on 09/25 (4) Pleural effusion ICD Codes: J90 - Pleural effusion, not elsewhere classified Plan: Chest tube, plans for pleurax cath tomorrow <Amanda Elizondo - Last Filed: 10/07/17 13:08> - Attending Attestation Patient seen and examined, agree with above. Continue diuretics. <Dennis Saenz - Last Filed: 10/07/17 22:29>
[2017-10-07] MEDS: Insulin NovoLOG Aspart Correctional Sugar Inj SQ SCH ×4 (14:49→21:54)
--- NOTE | 2017-10-07 16:32 | P.DIET ---
Nutritional Evaluation Type of nutrition evaluation: follow-up Nutrition screening: Weight Loss > 10 lbs Subjective Subjective Comments: Pt states he doesn't know why he's still here and he wants to go home. Objective - Diagnosis Lung Mass, Pleural Effusion, Hypoxia - Indications of Malnutrition Classification: Chronic disease or injury-related Malnutrition Characteristics: Weight loss, Fluid accumulation - Objective % IBW: 158 Body Weight Used for Calculations: IBW Energy Needs - Lower Range (kCal/kg): 25 Energy Needs - Upper Range (kCal/kg): 30 Lower Limit kCal/kg (kCals): 2,150 Upper Limit kCal/kg (kCals): 2,580 Lower Limit Protein Factor (Grams per Kg): 1.2 Upper Limit Protein Factor (Grams per Kg): 1.4 Lower Protein Needs (Protein): 103 Upper Protein Needs (Protein): 120 Dietitian Reviewed in Medical Record: Current diet, Curent medications, Intake & Output, Labs, Medical history Diet Order: Regular Oral Diet Intake Amount: Good 75-90% Objective Comments: Pt's nutritional needs based on upper IBW 86kg PMH: CAD s/p [place] s/p CABG x4, HTN, DM, PVD, HLD, bladder cancer Meds: Januvia, Dilantin, Lasix, Ferrous Sulfate Labs: Hgb 9.0, Hct 26.7, Cr 1.55, Glu 221, POC Glu 224, ALT 43, Alk Phos 138 +2 BM's Feeding - Current PO Supplement Current Supplement: Glucerna Shake Current Frequency of Supplement: Three times a day Current kCals Provided by Supplement: 220 Current Protein Provided by Supplement: 10 Assessment Assessment: Pt at nutritional risk r/t his dx, wt loss. He is now on a regular diet and po intake has much improved, he is eating 75-100% of his meals. He is receiving Glucerna tid for added nutrition. Reviewed MD notes, labs, wt, noted code status. Will continue to monitor plan of care. Dietitian to Monitor: Lab values, Intake & Output, Diet tolerance, Weight change , PO Intake, Medical course
--- NOTE | 2017-10-07 16:57 | P.PN ---
Subjective Interval history: alert up in chair chest tube still draining large amount Physical Exam Vital signs: Vital Signs 10/06/17 20:30 10/07/17 00:00 10/07/17 05:19 Temperature 98.1 F 98.6 F 97.9 F Pulse Rate 97 H 78 86 Respiratory Rate 18 15 17 Blood Pressure 133/70 122/46 L 109/56 L Pulse Oximetry 99 100 95 10/07/17 08:00 10/07/17 08:17 10/07/17 12:00 Temperature 98 F 98.2 F Pulse Rate 76 110 H Respiratory Rate 16 18 Blood Pressure 120/50 L 110/55 L Pulse Oximetry 96 95 96 Intake & Output 10/06/17 10/07/17 10/07/17 18:59 06:59 18:59 Intake Total 1010 / 1010 Output Total 750 / 750 Balance 1010 / 1010 -750 / -750 Weight 115.6 kg 112.3 kg Intake: IV 50 / 50 Flexbumin 25% Inj 50 ML @ 60 50 / 50 mls/hr IV.SIG BID@0840,1740 [facility] Rx#:[id number] Oral 960 / 960 Output: Urine Amount (Catheter) 600 / 600 Indwelling Urethral Catheter 600 / 600 Chest Tube Drainage 150 / 150 #1 Left Lower Pleural 150 / 150 Other: Bladder Irrigation Fluid - Amount Drained Indwelling Urethral Catheter 1,350 Date of Last Bowel Movement 10/06/17 10/06/17 10/06/17 # Bowel Movements 2 Narrative: GENERAL: alert, oriented SKIN: Warm and dry. HEAD: Atraumatic. Normocephalic. EYES: Pupils equal and round. No scleral icterus. No injection or drainage. ENT: No nasal bleeding or discharge. Mucous membranes pink and moist. NECK: Trachea midline. No JVD. CARDIOVASCULAR: Regular rate and rhythm. RESPIRATORY: No accessory muscle use. Clear to auscultation. Breath sounds equal bilaterally. left chest tube in place GASTROINTESTINAL: Abdomen soft, non-tender, nondistended. Hepatic and splenic margins not palpable. MUSCULOSKELETAL: Extremities without clubbing, cyanosis, or edema. No obvious deformities. NEUROLOGICAL: Awake and alert. No obvious cranial nerve deficits. Motor grossly within normal limits. Five out of 5 muscle strength in the arms and legs. Normal speech. PSYCHIATRIC: Appropriate mood and affect; insight and judgment normal. - Urinary Catheter Management Indwelling Urethral Catheter Cath placed during this visit: yes Urethral indwelling: Yes Insertion date: 09/29/17 Insertion time: 13:35 Results - Labs CBC & Chem 7: 10/08/17 04:30 10/08/17 04:30 Laboratory Results - last 24 hr 10/06/17 10/06/17 10/07/17 16:45 20:34 08:00 Sodium Potassium Chloride Carbon Dioxide Anion Gap BUN Creatinine Estimated GFR POC Glucose 142 H 171 H 151 H Random Glucose Calcium Total Bilirubin AST ALT Alkaline Phosphatase Total Protein Albumin 10/07/17 10/07/17 10:50 12:33 Sodium 142 Potassium 4.2 Chloride 103 Carbon Dioxide 31.6 Anion Gap 7 BUN 47 H Creatinine 1.55 H Estimated GFR 43 L POC Glucose 224 H Random Glucose 221 H Calcium 8.8 Total Bilirubin 0.4 AST 43 H ALT 20 Alkaline Phosphatase 138 H Total Protein 6.2 L Albumin 3.2 L - Imaging Impressions Chest X-Ray 10/07/17 08:00 CONCLUSION: 1. Stable left-sided chest tube in place with near resolution of left-sided pleural-parenchymal disease. 2. Minimal right lower lung zone airspace disease, likely atelectasis. Assessment and Plan - Assessment (1) Lung cancer Code(s): C34.90 - Malignant neoplasm of unspecified part of unspecified bronchus or lung Status: Acute (2) Malignant pleural effusion Code(s): J91.0 - Malignant pleural effusion Status: Acute - Plan ok for d/c with chest tube pleurodesis when possible will sign off office 1 week
[2017-10-07] MEDS: Temazepam 15 MG Capsule PO SCH (20:04)
[2017-10-08] MEDS: Metoprolol Tartrate 25 MG Tablet PO SCH ×3 (05:00→21:53)
[2017-10-08 05:26] LABS: Baso % (Auto) 0.4 % (0.0-2.0); Eos % (Auto) 0.9 % (0.0-4.0); Hematocrit 25.4 % (39.0-51.0); Hemoglobin 8.5 gm/dL (13.0-17.0); Lymph # (Auto) 0.6 th/mm3 (1.0-4.8); Lymph % (Auto) 13.9 % (9.0-44.0); Mean Corpuscular HGB Conc 33.4 % (32.0-36.0); Mean Corpuscular Hemoglobin 29.9 pg (27.0-34.0); Mean Corpuscular Volume 89.5 fL (80.0-100.0); Mean Platelet Volume 8.6 fL (7.0-11.0); Mono # (Auto) 0.3 th/mm3 (0.0-0.9); Mono % (Auto) 6.3 % (0.0-8.0); Neut # (Auto) 3.4 th/mm3 (1.8-7.7); Neut % (Auto) 78.5 % (16.0-70.0); Platelet Count 117 th/mm3 (150-450); Red Blood Count 2.83 mil/mm3 (4.50-5.90); Red Cell Distribution Width 14.1 % (11.6-17.2); White Blood Count 4.4 th/mm3 (4.0-11.0)
[2017-10-08 05:44] LABS: Albumin 2.9 g/dL (3.4-5.0); Anion Gap 5 meq/L (5-15); Aspartate Aminotransferase 35 U/L (15-37); Blood Urea Nitrogen 47 mg/dL (7-18); Calcium 8.5 mg/dL (8.5-10.1); Carbon Dioxide 34.4 meq/L (21.0-32.0); Chloride 102 meq/L (98-107); Glomerular Filtration Rate 44 mL/min (>89); Glucose,Random 133 mg/dL (74-106); Magnesium 1.9 mg/dL (1.5-2.5); Potassium 3.9 meq/L (3.5-5.1); Sodium 141 meq/L (136-145)
[2017-10-08 05:45] LABS: Alanine Aminotransferase 16 U/L (12-78)
[2017-10-08 05:48] LABS: Alkaline Phosphatase 127 U/L (45-117); Total Protein 5.6 g/dL (6.4-8.2)
[2017-10-08] MEDS: Allopurinol 300 MG Tablet PO SCH (08:58)
[2017-10-08] MEDS: Phenytoin Sodium 100 MG Capsule PO SCH ×2 (08:59→20:14)
[2017-10-08] MEDS: Ferrous Sulfate 325 MG Tablet PO SCH ×2 (08:59→20:14)
[2017-10-08] MEDS: Albumin Human 25% Inj 50 ML IV.SIG SCH ×2 (09:34→17:59)
[2017-10-08] MEDS ORDERED: fentaNYL Citrate Inj 250 MCG/5 ML Ampul ONE (10:34)
[2017-10-08] MEDS ORDERED: Lidocaine 1%/Epinephrine 1:100,000 Inj 30 ML Vial ONE (11:00)
[2017-10-08] MEDS ORDERED: ceFAZolin 2 GM Premix Inj 2 GM/50 ML PIGGYBACK IV.SIG ONE (11:10)
--- NOTE | 2017-10-08 11:51 | P.RAD ---
Post Procedure Progress Note - Pre Procedure Diagnosis (1) Lung cancer - Post Procedure Diagnosis (1) Lung cancer - Procedure Information Procedure Date: 10/08/17 Supervising Radiologist: López Maldonado MD Estimated blood loss (mL): 0 Anesthesia: Conscious Sedation - Plan of Activity Patient to Unit: ROPU Patient Condition: Good See PACS Report for procedural detail/treatment.
--- NOTE | 2017-10-08 14:52 | IR ---
EXAM DATE: 10/08/2017 12:08 PM EDT AGE/SEX: 82 years / Male INDICATIONS: Recurrent or metastatic pleural effusions with good symptomatic relief following chest tube placement. Patient is now considering hospice and tunneled Aspira catheter has been requested to facilitate discharge home. CLINICAL DATA: This is the patient's initial encounter. Patient reports that signs and symptoms have been present for 1 week and indicates a pain score of 0/10. MEDICAL/SURGICAL HISTORY: Diabetes. Hypertension. CAD.Hyperlipidemia.Bladder cancer.Tobacco ad diction. 4 Vessel CABG.Heart catheterization.Appendectomy.Cystoscopy with tumor removal. COMPARISON: [facility], CHEST 1V SINGLE AP, 10/07/2017. . FLUORO TIME (min): 1.81 IMAGE SERIES: 3 ACCESS SITE: SEDATION TIME (min): 30 MEDICATION(S): 5mg midazolam (Versed) IV 250mcg fentanyl (Sublimaze) IV Prophylactic antibiotics were administered with appropriate pre-procedure timing. Intra-procedural an tibiotics were given as prescribed above. DEVICE(S): 15 Togolese Aspiria catheter . . PROCEDURE: 1. Fluoroscopically guided chest tube placement. 2. Conscious sedation with continuous EKG and oximetry monitoring. The risks, benefits and alternatives to the procedure were explained and verbal and written consent w as obtained. The site was prepped in sterile fashion. Full sterile technique was used, including ca p, mask, sterile gloves and gown and a large sterile sheet. Hand hygiene and 2% chlorhexidine and/or betadine/alcohol prep was utilized per protocol for cutaneous antisepsis. The skin and subcutaneous tissues were infiltrated with local anesthetic solution. Existing chest tube and surrounding skin were prepped and draped in usual sterile fashion. 1% lidocai ne solution was injected for local anesthesia. Guidewire was advanced through the chest tube and plac ed in the pleural space. Catheter was then removed over the wire. A tract approximately 7 cm from th e puncture site was then anesthetized with lidocaine solution. Next, a 15.5 [place]og[place]ese vascular drainage catheter was advanced through the tract and subsequently inserted through a peel-away sheath into the peritoneal cavity. Catheter demonstrated appropriate function and was therefore secured into place. Conscious sedation was performed with the prescribed dosages and duration as above in the presence of an independent trained radiology nurse to assist in the monitoring of the patient. EKG and oximetry remained stable throughout the procedure. The patient tolerated the procedure well and there were n o complications. The patient was sent to post anesthesia recovery in stable condition. CONCLUSION: 1. Uncomplicated tunneled left sided Aspira pleural drain placement, as above. Electronically signed by: López Maldonado MD 10/08/2017 2:50 PM EDT
[2017-10-08] MEDS: Insulin NovoLOG Aspart Correctional Sugar Inj SQ SCH ×3 (15:16→21:48)
--- NOTE | 2017-10-08 17:27 | P.PNIM ---
Subjective Interval history: Pt had placement of aspira pleural drain. Pt has NO new complaints. Physical Exam Vital signs: Vital Signs 10/07/17 20:00 10/08/17 00:00 10/08/17 04:00 Temperature 98.3 F 98.0 F 98.1 F Pulse Rate 107 H 65 92 H Respiratory Rate 18 18 Blood Pressure 127/57 L 127/62 119/65 Pulse Oximetry 98 98 98 10/08/17 07:41 10/08/17 10:30 10/08/17 11:50 Temperature 98.6 F 97.9 F Pulse Rate 90 83 Respiratory Rate 18 18 Blood Pressure 141/69 H 120/56 L Pulse Oximetry 96 98 91 L 10/08/17 12:05 10/08/17 12:35 10/08/17 13:04 Temperature Pulse Rate 75 84 81 Respiratory Rate 18 16 Blood Pressure 130/63 119/57 L 100/48 L Pulse Oximetry 97 10/08/17 15:00 Temperature 98.6 F Pulse Rate 101 H Respiratory Rate 16 Blood Pressure 124/53 L Pulse Oximetry 98 Intake & Output 10/07/17 10/08/17 10/08/17 18:59 06:59 18:59 Intake Total 900 / 900 50 / 50 Output Total 1350 / 1350 300 / 300 Balance -450 / -450 -300 / -300 50 / 50 Weight 112.2 kg Intake: IV 100 / 100 50 / 50 Flexbumin 25% Inj 50 ML @ 60 100 / 100 50 / 50 mls/hr IV.SIG BID@0840,1740 [facility] Rx#:[id number] Oral 800 / 800 Output: Urine 1350 / 1350 300 / 300 Other: Date of Last Bowel Movement 10/07/17 10/07/17 10/07/17 # Bowel Movements 1 Narrative: GENERAL: This is a well-nourished, well-developed patient, in no apparent distress. CARDIOVASCULAR: Regular rate and rhythm without murmurs, gallops, or rubs. RESPIRATORY: Clear to auscultation. Breath sounds equal bilaterally. No wheezes , rales, or rhonchi. aspira pleural drain noted at left chest wall. GASTROINTESTINAL: Abdomen soft, non-tender, nondistended. Normal active bowel sounds MUSCULOSKELETAL: 2+ LE edema x b/l NEURO: Alert & Oriented x4 to person, place, time, situation. Moves all ext x4 - Urinary Catheter Management Indwelling Urethral Catheter Cath placed during this visit: yes Urethral indwelling: Yes Reason for continuing: Other continuation reason Insertion date: 09/29/17 Insertion time: 13:35 Results - Labs CBC & Chem 7: 10/08/17 04:30 10/08/17 04:30 Laboratory Results - last 24 hr 10/07/17 10/07/17 10/08/17 17:36 21:44 04:30 WBC 4.4 RBC 2.83 L Hgb 8.5 L Hct 25.4 L MCV 89.5 MCH 29.9 MCHC 33.4 RDW 14.1 Plt Count 117 L MPV 8.6 Neut % (Auto) 78.5 H Lymph % (Auto) 13.9 [place] % (Auto) 6.3 Eos % (Auto) 0.9 Baso % (Auto) 0.4 Neut # (Auto) 3.4 Lymph # (Auto) 0.6 L [place] # (Auto) 0.3 Eos # (Auto) 0.0 Baso # (Auto) 0.0 WBC Differential . Differential Comment Auto diff final Sodium Potassium Chloride Carbon Dioxide Anion Gap BUN Creatinine Estimated GFR POC Glucose 200 H 192 H Random Glucose Calcium Magnesium Total Bilirubin AST ALT Alkaline Phosphatase Total Protein Albumin 10/08/17 10/08/17 10/08/17 04:30 09:06 09:43 WBC RBC Hgb Hct MCV MCH MCHC RDW Plt Count MPV Neut % (Auto) Lymph % (Auto) [place] % (Auto) Eos % (Auto) Baso % (Auto) Neut # (Auto) Lymph # (Auto) [place] # (Auto) Eos # (Auto) Baso # (Auto) WBC Differential Differential Comment Sodium 141 Potassium 3.9 Chloride 102 Carbon Dioxide 34.4 H Anion Gap 5 BUN 47 H Creatinine 1.51 H Estimated GFR 44 L POC Glucose 66 L 262 H Random Glucose 133 H Calcium 8.5 Magnesium 1.9 Total Bilirubin 0.4 AST 35 ALT 16 Alkaline Phosphatase 127 H Total Protein 5.6 L D Albumin 2.9 L - Imaging Impressions Catheter Placement X-Ray 10/08/17 00:00 CONCLUSION: 1. Uncomplicated tunneled left sided Aspira pleural drain placement, as above. Assessment and Plan - Assessment (1) Lung mass Code(s): R91.8 - Other nonspecific abnormal finding of lung field Status: Acute Plan: (1) Lung mass ICD Codes: R91.8 - Other nonspecific abnormal finding of lung field Status: Acute Plan: Lung mass with pleural effusion This is an 82-year-old male patient with an extensive tobacco abuse history presents to [facility] with complaints of shortness of breath times 5 days prior to that was treated for pneumonia in [place] -CT of the chest reviewed and reveals masslike area seen in the left upper lobe extending to the left hilar region with left mediastinal and hilar adenopathy and suspected hepatic metastasis. A primary central lung carcinoma would be suspected. Moderate left pleural effusion. Left adrenal gland enlargement. This is nonspecific. No adrenal or metastatic lesion could have this appearance. -Interventional radiology consulted for ultrasound-guided thoracentesis -Total volume of 2600 mL's of clear lópez fluid was removed 09/13/2017 -Post thoracentesis chest x-ray reveals no pneumothorax following left thoracentesis Pleural fluid LDH 424 pleural fluid total protein 3.1 Serum LDH 691 serum total protein 6.7 -Duonebs scheduled and as needed - D dimmer elevated, US BLE negative for DVT - VQ scan reviewed with radiology and felt to be neg for PE - cytology from pleural effusion negative for malignancy - Pt underwent Bronchoscopy (09/19/17) with Dr. Stephan Elizabeth (09/19/17) - irreg lesion nearly obstructing the left upper lobe bronchus - left lower bronchus with bronchitis changes. 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 - Pt, , and 2 daughters updated at the bedside regarding pathology results ( 09/24/17) - Case d/w Dr. Morin (09/24/17) - poor prognosis - possible one year survivability with palliative chemotherapy - chemotherapy 09/25/17 . chemo held due to tumor lysis and cain/ckd - CT A/P (09/23/17) 1. Large left pleural effusion with near complete consolidation of the left lung. 2. Multiple hypodensities scattered throughout the liver concerning for metasatic disease 3. Both adrenal glands are enlarged. 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 now resolved - s/p - rasburicase per Oncology for elevated uric acid. - s/p left chest tube on 10/01 for malignant pleural effusion - left chest tube converted to aspira pleural drain 10/08/17 - MARLEY hose - dvt prophylaxis. - supportive care - wound care for lower ext denuded skin/blisters. imani wraps placed. - family will support hospice if pt decides...but he wants to remain aggressive. - daily PT - Pt would benefit from SNF, but refusing SNF placement - anticipate d/c to home in next 2-3 days with HHC and home PT (2) Bilateral lower extremity edema ICD Codes: R60.0 - Bilateral lower extremity edema - change to PO lasix - zaroxolyn - MARLEY hose (3) CAD (coronary artery disease) ICD Codes: I25.10 - CAD (coronary artery disease) Status: Chronic Plan: - coronary artery disease status post OK and status post four-vessel CABG 2001 - ASA, pravachol, atenolol (4) Diabetes mellitus ICD Codes: E11.9 - Type 2 diabetes mellitus without complications Status: Chronic - resume amaryl - januvia - SSI (5) Tobacco abuse ICD Codes: Z72.0 - Tobacco use Plan: Patient counselled encouraged to abstain (6) Seizure ICD Codes: R56.9 - Unspecified convulsions Status: Chronic Plan: Continue patient's home phenytoin 200 mg AM and 100mg QHS (7) Hyperlipidemia ICD Codes: E78.5 - Hyperlipidemia, unspecified Status: Chronic Plan: Continue simvastatin 80 mg p.o. daily (8) Bladder cancer ICD Codes: C67.9 - Malignant neoplasm of bladder, unspecified Plan: bladder cancer status post cystoscopy with removal of tumor
[2017-10-08] MEDS: Furosemide 40 MG Tablet PO SCH (18:00)
--- NOTE | 2017-10-08 20:11 | P.PN ---
Subjective Interval history: alert no distree Physical Exam Vital signs: Vital Signs 10/08/17 00:00 10/08/17 04:00 10/08/17 07:41 Temperature 98.0 F 98.1 F 98.6 F Pulse Rate 65 92 H 90 Respiratory Rate 18 18 Blood Pressure 127/62 119/65 141/69 H Pulse Oximetry 98 98 96 10/08/17 10:30 10/08/17 11:50 10/08/17 12:05 Temperature 97.9 F Pulse Rate 83 75 Respiratory Rate 18 Blood Pressure 120/56 L 130/63 Pulse Oximetry 98 91 L 97 10/08/17 12:35 10/08/17 13:04 10/08/17 15:00 Temperature 98.6 F Pulse Rate 84 81 101 H Respiratory Rate 18 16 16 Blood Pressure 119/57 L 100/48 L 124/53 L Pulse Oximetry 98 Intake & Output 10/08/17 10/08/17 10/09/17 06:59 18:59 06:59 Intake Total 550 / 550 Output Total 300 / 300 2200 / 2200 Balance -300 / -300 -1650 / -1650 Weight 112.2 kg Intake: IV 50 / 50 Flexbumin 25% Inj 50 ML @ 60 50 / 50 mls/hr IV.SIG BID@8805,9130 [facility] Rx#:[id number] Oral 500 / 500 Output: Urine 300 / 300 2200 / 2200 Other: Date of Last Bowel Movement 10/07/17 10/07/17 Narrative: GENERAL: alert, oriented SKIN: Warm and dry. HEAD: Atraumatic. Normocephalic. EYES: Pupils equal and round. No scleral icterus. No injection or drainage. ENT: No nasal bleeding or discharge. Mucous membranes pink and moist. NECK: Trachea midline. No JVD. CARDIOVASCULAR: Regular rate and rhythm. RESPIRATORY: No accessory muscle use. Clear to auscultation. Breath sounds equal bilaterally. left chest tube in place GASTROINTESTINAL: Abdomen soft, non-tender, nondistended. Hepatic and splenic margins not palpable. MUSCULOSKELETAL: Extremities without clubbing, cyanosis, or edema. No obvious deformities. NEUROLOGICAL: Awake and alert. No obvious cranial nerve deficits. Motor grossly within normal limits. Five out of 5 muscle strength in the arms and legs. Normal speech. PSYCHIATRIC: Appropriate mood and affect; insight and judgment normal. - Urinary Catheter Management Indwelling Urethral Catheter Cath placed during this visit: yes Urethral indwelling: Yes Reason for continuing: Other continuation reason Insertion date: 09/29/17 Insertion time: 13:35 Results - Labs CBC & Chem 7: 10/08/17 04:30 10/08/17 04:30 Laboratory Results - last 24 hr 10/07/17 10/08/17 10/08/17 21:44 04:30 04:30 WBC 4.4 RBC 2.83 L Hgb 8.5 L Hct 25.4 L MCV 89.5 MCH 29.9 MCHC 33.4 RDW 14.1 Plt Count 117 L MPV 8.6 Neut % (Auto) 78.5 H Lymph % (Auto) 13.9 [place] % (Auto) 6.3 Eos % (Auto) 0.9 Baso % (Auto) 0.4 Neut # (Auto) 3.4 Lymph # (Auto) 0.6 L [place] # (Auto) 0.3 Eos # (Auto) 0.0 Baso # (Auto) 0.0 WBC Differential . Differential Comment Auto diff final Sodium 141 Potassium 3.9 Chloride 102 Carbon Dioxide 34.4 H Anion Gap 5 BUN 47 H Creatinine 1.51 H Estimated GFR 44 L POC Glucose 192 H Random Glucose 133 H Calcium 8.5 Magnesium 1.9 Total Bilirubin 0.4 AST 35 ALT 16 Alkaline Phosphatase 127 H Total Protein 5.6 L D Albumin 2.9 L 10/08/17 10/08/17 10/08/17 09:06 09:43 17:34 WBC RBC Hgb Hct MCV MCH MCHC RDW Plt Count MPV Neut % (Auto) Lymph % (Auto) [place] % (Auto) Eos % (Auto) Baso % (Auto) Neut # (Auto) Lymph # (Auto) [place] # (Auto) Eos # (Auto) Baso # (Auto) WBC Differential Differential Comment Sodium Potassium Chloride Carbon Dioxide Anion Gap BUN Creatinine Estimated GFR POC Glucose 66 L 262 H 189 H Random Glucose Calcium Magnesium Total Bilirubin AST ALT Alkaline Phosphatase Total Protein Albumin - Imaging Impressions Catheter Placement X-Ray 10/08/17 00:00 CONCLUSION: 1. Uncomplicated tunneled left sided Aspira pleural drain placement, as above. Assessment and Plan - Assessment (1) Lung cancer Code(s): C34.90 - Malignant neoplasm of unspecified part of unspecified bronchus or lung Status: Acute (2) Malignant pleural effusion Code(s): J91.0 - Malignant pleural effusion Status: Acute - Plan impression pleural effusion chest tube in place,with drain plan home soon
[2017-10-08] MEDS: Temazepam 15 MG Capsule PO SCH (20:13)
[2017-10-08] MEDS: Nystatin 100,000 UNITS/GM Powder 15 GM Bottle TOPICAL SCH (21:52)
--- NOTE | 2017-10-08 23:58 | P.PNONC ---
Subjective Interval history: Resting comfortably in bedside chair. Objective Vital Signs/Intake & Output: Vital Signs 10/08/17 00:00 10/08/17 04:00 10/08/17 07:41 Temperature 98.0 F 98.1 F 98.6 F Pulse Rate 65 92 H 90 Respiratory Rate 18 18 Blood Pressure 127/62 119/65 141/69 H Pulse Oximetry 98 98 96 10/08/17 10:30 10/08/17 11:50 10/08/17 12:05 Temperature 97.9 F Pulse Rate 83 75 Respiratory Rate 18 Blood Pressure 120/56 L 130/63 Pulse Oximetry 98 91 L 97 10/08/17 12:35 10/08/17 13:04 10/08/17 15:00 Temperature 98.6 F Pulse Rate 84 81 101 H Respiratory Rate 18 16 16 Blood Pressure 119/57 L 100/48 L 124/53 L Pulse Oximetry 98 10/08/17 20:00 10/08/17 20:10 10/08/17 21:56 Temperature 98.1 F Pulse Rate 93 H 85 Respiratory Rate 18 Blood Pressure 131/77 Pulse Oximetry 95 94 L 95 Intake & Output 10/08/17 10/08/17 10/09/17 06:59 18:59 06:59 Intake Total 550 / 550 100 / 100 Output Total 300 / 300 2200 / 2200 750 / 750 Balance -300 / -300 -1650 / -1650 -650 / -650 Weight 112.2 kg Intake: IV 50 / 50 100 / 100 Flexbumin 25% Inj 50 ML @ 60 50 / 50 50 / 50 mls/hr IV.SIG BID@0840,1740 [facility] Rx#:[id number] Ancef 2 GM Premix Inj 2 gm In 50 / 50 50 ml @ 0 mls/hr IV.SIG .[facility]- [facility] Rx#:[id number] Oral 500 / 500 Output: Urine 300 / 300 2200 / 2200 750 / 750 Other: Date of Last Bowel Movement 10/07/17 10/07/17 10/08/17 Result Diagrams: 10/08/17 04:30 10/08/17 04:30 Laboratory Results: Laboratory Results - last 24 hr 10/08/17 10/08/17 10/08/17 04:30 04:30 09:06 WBC 4.4 RBC 2.83 L Hgb 8.5 L Hct 25.4 L MCV 89.5 MCH 29.9 MCHC 33.4 RDW 14.1 Plt Count 117 L MPV 8.6 Neut % (Auto) 78.5 H Lymph % (Auto) 13.9 [place] % (Auto) 6.3 Eos % (Auto) 0.9 Baso % (Auto) 0.4 Neut # (Auto) 3.4 Lymph # (Auto) 0.6 L [place] # (Auto) 0.3 Eos # (Auto) 0.0 Baso # (Auto) 0.0 WBC Differential . Differential Comment Auto diff final Sodium 141 Potassium 3.9 Chloride 102 Carbon Dioxide 34.4 H Anion Gap 5 BUN 47 H Creatinine 1.51 H Estimated GFR 44 L POC Glucose 66 L Random Glucose 133 H Calcium 8.5 Magnesium 1.9 Total Bilirubin 0.4 AST 35 ALT 16 Alkaline Phosphatase 127 H Total Protein 5.6 L D Albumin 2.9 L 10/08/17 10/08/17 10/08/17 09:43 17:34 20:13 WBC RBC Hgb Hct MCV MCH MCHC RDW Plt Count MPV Neut % (Auto) Lymph % (Auto) [place] % (Auto) Eos % (Auto) Baso % (Auto) Neut # (Auto) Lymph # (Auto) [place] # (Auto) Eos # (Auto) Baso # (Auto) WBC Differential Differential Comment Sodium Potassium Chloride Carbon Dioxide Anion Gap BUN Creatinine Estimated GFR POC Glucose 262 H 189 H 197 H Random Glucose Calcium Magnesium Total Bilirubin AST ALT Alkaline Phosphatase Total Protein Albumin Imaging Studies: Impressions Catheter Placement X-Ray 10/08/17 00:00 CONCLUSION: 1. Uncomplicated tunneled left sided Aspira pleural drain placement, as above. Medications: Active Medications Generic Name Dose Route Start Last Admin Trade Name Freq PRN Reason Stop Dose Admin Hydrocodone Bitart/Acetaminophen 1 tab 10/06/17 00:01 10/08/17 08:56 Henriette 5/325 PO 1 tab Q4H PRN Administration PAIN SCALE 3-10 Allopurinol 150 mg 10/06/17 09:00 10/08/17 08:58 Zyloprim PO 150 mg DAILY CAMMY Administration Aspirin 81 mg 10/06/17 09:00 10/08/17 08:58 Aspirin Chew PO 81 mg DAILY [facility] Administration Dextrose 50 ml 10/06/17 00:01 10/08/17 09:22 D50w Vial IV.PUSH 50 ml UNSCH PRN Administration PER HYPOGLYCEMIA PROTOCOL Enoxaparin Sodium 30 mg 10/06/17 08:00 10/07/17 09:12 Lovenox Inj SQ 30 mg Q24H CAMMY Administration Ferrous Sulfate 325 mg 10/06/17 09:00 10/08/17 20:14 Ferosul PO 325 mg BID [facility] Administration Furosemide 40 mg 10/08/17 18:00 10/08/17 18:00 Lasix PO 40 mg BID@0900,1800 [facility] Administration Albumin Human 50 mls @ 60 mls/hr 10/06/17 17:40 10/08/17 20:00 Flexbumin 25% Inj IV.SIG Infused BID@0840,1740 [facility] Infusion Insulin Aspart 1 unit 10/06/17 00:01 10/08/17 21:48 Novolog Insulin Suppl Scale Inj SQ Not Given ACHS [facility] Protocol Metolazone 2.5 mg 10/06/17 09:00 10/08/17 20:14 Zaroxolyn PO 2.5 mg BID [facility] Administration Metoprolol Tartrate 25 mg 10/06/17 06:00 10/08/17 21:53 Lopressor PO 25 mg Q8H [facility] Administration Nystatin 1 applicatio 10/08/17 18:00 10/08/17 21:52 Mycostatin Powder TOPICAL 1 applicatio TID [facility] Administration Phenytoin Sodium 100 mg 10/06/17 21:00 10/08/17 20:14 Dilantin PO 100 mg HS [facility] Administration Phenytoin Sodium 200 mg 10/06/17 09:00 10/08/17 08:59 Dilantin PO 200 mg DAILY [facility] Administration Pravastatin Sodium 80 mg 10/06/17 09:00 10/08/17 08:58 Pravachol PO 80 mg DAILY [facility] Administration Sitagliptin Phosphate 75 mg 10/06/17 09:00 10/08/17 08:57 Januvia PO 75 mg DAILY [facility] Administration Sodium Chloride 2 ml 10/06/17 09:00 10/08/17 21:52 Ns Flush IV.FLUSH 2 ml BID [facility] Administration Temazepam 15 mg 10/06/17 21:00 10/08/17 20:13 Restoril PO 15 mg HS [facility] Administration Terazosin HCl 10 mg 10/06/17 21:00 10/08/17 20:13 Hytrin PO 10 mg HS [facility] Administration Objective Remarks: GENERAL: overweight man SKIN: Warm and dry. HEAD: Normocephalic. EYES: No scleral icterus. No injection or drainage. RESPIRATORY: No accessory muscle use. GASTROINTESTINAL: protuberent abdomen EXTREMITIES: edema MUSCULOSKELETAL: Adequate muscle tone. NEUROLOGICAL: No obvious focal deficit. Awake, alert, and oriented x3. PSYCHIATRIC: Appropriate mood and affect; insight and judgment normal. 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 Will have close follow up in oncology clinic on discharge. 2. Pleural effusion: s/p pleurex 3. ARF: improved
[2017-10-09] MEDS ORDERED: Glimepiride 1 MG Tablet PO SCH (07:00)
[2017-10-09] MEDS: Allopurinol 300 MG Tablet PO SCH (08:04)
[2017-10-09] MEDS: Metoprolol Tartrate 25 MG Tablet PO SCH ×3 (08:04→21:29)
[2017-10-09] MEDS: Ferrous Sulfate 325 MG Tablet PO SCH ×2 (08:05→21:29)
[2017-10-09] MEDS: Phenytoin Sodium 100 MG Capsule PO SCH ×2 (08:05→21:29)
[2017-10-09] MEDS: Furosemide 40 MG Tablet PO SCH ×2 (08:07→17:31)
[2017-10-09] MEDS: Albumin Human 25% Inj 50 ML IV.SIG SCH ×2 (09:09→17:36)
[2017-10-09] MEDS: Insulin NovoLOG Aspart Correctional Sugar Inj SQ SCH ×4 (09:11→21:36)
[2017-10-09] MEDS: Nystatin 100,000 UNITS/GM Powder 15 GM Bottle TOPICAL SCH ×3 (09:14→19:12)
--- NOTE | 2017-10-09 13:23 | P.PN ---
Subjective Interval history: in chair no sob Physical Exam Vital signs: Vital Signs 10/08/17 15:00 10/08/17 20:00 10/08/17 20:10 Temperature 98.6 F 98.1 F Pulse Rate 101 H 93 H Respiratory Rate 16 18 Blood Pressure 124/53 L 131/77 Pulse Oximetry 98 95 94 L 10/08/17 21:56 10/09/17 00:00 10/09/17 07:50 Temperature 98.2 F 98.2 F Pulse Rate 85 78 120 H Respiratory Rate 18 Blood Pressure 105/55 L 123/56 L Pulse Oximetry 95 92 L 95 10/09/17 08:11 10/09/17 10:15 Temperature Pulse Rate Respiratory Rate Blood Pressure Pulse Oximetry 95 98 Intake & Output 10/08/17 10/09/17 10/09/17 18:59 06:59 18:59 Intake Total 550 / 550 200 / 200 50 / 50 Output Total 2200 / 2200 1150 / 1150 Balance -1650 / -1650 -950 / -950 50 / 50 Weight 111.9 kg Intake: IV 50 / 50 100 / 100 50 / 50 Flexbumin 25% Inj 50 ML @ 60 50 / 50 50 / 50 50 / 50 mls/hr IV.SIG BID@0840,1740 [facility] Rx#:[id number] Ancef 2 GM Premix Inj 2 gm In 50 / 50 50 ml @ 0 mls/hr IV.SIG .STK- MED ONE Rx#:[id number] Oral 500 / 500 100 / 100 Output: Urine 2200 / 2200 750 / 750 Urine Amount (Catheter) 400 / 400 Indwelling Urethral Catheter 400 / 400 Other: Date of Last Bowel Movement 10/07/17 10/08/17 Narrative: GENERAL: alert, oriented SKIN: Warm and dry. HEAD: Atraumatic. Normocephalic. EYES: Pupils equal and round. No scleral icterus. No injection or drainage. ENT: No nasal bleeding or discharge. Mucous membranes pink and moist. NECK: Trachea midline. No JVD. CARDIOVASCULAR: Regular rate and rhythm. RESPIRATORY: No accessory muscle use. Clear to auscultation. Breath sounds equal bilaterally. left chest tube in place GASTROINTESTINAL: Abdomen soft, non-tender, nondistended. Hepatic and splenic margins not palpable. MUSCULOSKELETAL: Extremities without clubbing, cyanosis, or edema. No obvious deformities. NEUROLOGICAL: Awake and alert. No obvious cranial nerve deficits. Motor grossly within normal limits. Five out of 5 muscle strength in the arms and legs. Normal speech. PSYCHIATRIC: Appropriate mood and affect; insight and judgment normal. - Urinary Catheter Management Indwelling Urethral Catheter Cath placed during this visit: yes Urethral indwelling: Yes Reason for continuing: Chronic Urinary Retention Insertion date: 09/29/17 Insertion time: 13:35 Results - Labs CBC & Chem 7: 10/08/17 04:30 10/08/17 04:30 Laboratory Results - last 24 hr 10/08/17 10/08/17 10/09/17 17:34 20:13 07:25 POC Glucose 189 H 197 H 182 H 10/09/17 12:15 POC Glucose 183 H - Imaging Impressions Catheter Placement X-Ray 10/08/17 00:00 CONCLUSION: 1. Uncomplicated tunneled left sided Aspira pleural drain placement, as above. Assessment and Plan - Assessment (1) Lung cancer Code(s): C34.90 - Malignant neoplasm of unspecified part of unspecified bronchus or lung Status: Acute (2) Malignant pleural effusion Code(s): J91.0 - Malignant pleural effusion Status: Acute - Plan ok for d/c with chest tube pleurodesis when possible office 1 week
--- NOTE | 2017-10-09 14:57 | P.PN ---
Subjective Interval history: Patient is sitting on the chair, feeling better. Physical Exam Vital signs: Vital Signs 10/08/17 15:00 10/08/17 20:00 10/08/17 20:10 Temperature 98.6 F 98.1 F Pulse Rate 101 H 93 H Respiratory Rate 16 18 Blood Pressure 124/53 L 131/77 Pulse Oximetry 98 95 94 L 10/08/17 21:56 10/09/17 00:00 10/09/17 07:50 Temperature 98.2 F 98.2 F Pulse Rate 85 78 120 H Respiratory Rate 18 Blood Pressure 105/55 L 123/56 L Pulse Oximetry 95 92 L 95 10/09/17 08:11 10/09/17 10:15 Temperature Pulse Rate Respiratory Rate Blood Pressure Pulse Oximetry 95 98 Intake & Output 10/08/17 10/09/17 10/09/17 18:59 06:59 18:59 Intake Total 550 / 550 200 / 200 50 / 50 Output Total 2200 / 2200 1150 / 1150 Balance -1650 / -1650 -950 / -950 50 / 50 Weight 111.9 kg Intake: IV 50 / 50 100 / 100 50 / 50 Flexbumin 25% Inj 50 ML @ 60 50 / 50 50 / 50 50 / 50 mls/hr IV.SIG BID@0840,1740 [facility] Rx#:[id number] Ancef 2 GM Premix Inj 2 gm In 50 / 50 50 ml @ 0 mls/hr IV.SIG .STK- MED ONE Rx#:[id number] Oral 500 / 500 100 / 100 Output: Urine 2200 / 2200 750 / 750 Urine Amount (Catheter) 400 / 400 Indwelling Urethral Catheter 400 / 400 Other: Date of Last Bowel Movement 10/07/17 10/08/17 - Constitutional mild distress - Routine HEENT Exam Head: Present: normocephalic - Routine Neck Exam Present: supple, full ROM, JVD - Routine Respiratory Exam Present: decreased breath sounds, wheezes, crackles, distant breath sounds, diminished air movement - Routine Cardiovascular Exam Present: S1, S2, tachycardia - Routine Abdominal Exam Present: soft, normoactive bowel sounds, distended - Routine Extremities Exam Present: edema - Routine Neurological Exam Present: alert, oriented X3 - Detailed Neurological Exam: Coma Scale Verbal Response: Oriented Motor Response: Obey commands - Urinary Catheter Management Indwelling Urethral Catheter Cath placed during this visit: yes Urethral indwelling: Yes Reason for continuing: Chronic Urinary Retention Insertion date: 09/29/17 Insertion time: 13:35 Results - Labs CBC & Chem 7: 10/08/17 04:30 10/08/17 04:30 Laboratory Results - last 24 hr 10/08/17 10/08/17 10/09/17 17:34 20:13 07:25 POC Glucose 189 H 197 H 182 H 10/09/17 12:15 POC Glucose 183 H Assessment and Plan - Plan (1) Acute renal insufficiency ICD Codes: N28.9 - Acute renal insufficiency Status: Acute Plan: Acute kidney injury either related to prerenal azotemia or possibility of ATN either from chemotherapy or hypoxemia, but there is no documented hypotension. 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 Good urinary output. K+ stable, Creatinine is stable at 1.5, close to his baseline. Continue Lasix to 40mg IV BID and albumin to help with edema Continue metolazone BID. Avoid any nephrotoxins. Will continue to monitor urinary output and bmp. (2) Bilateral lower extremity edema ICD Codes: R60.0 - Bilateral lower extremity edema Status: Acute Plan: Elevate legs Luis Angel hose on Lasix to 40mg IV BID and albumin Metolazone (3) Lung mass ICD Codes: R91.8 - Other nonspecific abnormal finding of lung field Status: Acute Plan: Oncology managing Started chemotherapy on 09/25 (4) Pleural effusion ICD Codes: J90 - Pleural effusion, not elsewhere classified Plan: CT and placement of chest tube , now has chest catheter placed.
--- NOTE | 2017-10-09 15:41 | P.PNIM ---
Subjective Interval history: Patient seen with at bedside Offers no new complaints wants to be DC home tomorrow, continues to refuse SNF blood tinged urine noted in kennedy catheter Physical Exam Vital signs: Vital Signs 10/08/17 20:00 10/08/17 20:10 10/08/17 21:56 Temperature 98.1 F Pulse Rate 93 H 85 Respiratory Rate 18 Blood Pressure 131/77 Pulse Oximetry 95 94 L 95 10/09/17 00:00 10/09/17 07:50 10/09/17 08:11 Temperature 98.2 F 98.2 F Pulse Rate 78 120 H Respiratory Rate 18 Blood Pressure 105/55 L 123/56 L Pulse Oximetry 92 L 95 95 10/09/17 10:15 10/09/17 12:00 Temperature 98.2 F Pulse Rate 127 H Respiratory Rate Blood Pressure 130/67 Pulse Oximetry 98 95 Intake & Output 10/08/17 10/09/17 10/09/17 18:59 06:59 18:59 Intake Total 550 / 550 200 / 200 50 / 50 Output Total 2200 / 2200 1150 / 1150 Balance -1650 / -1650 -950 / -950 50 / 50 Weight 111.9 kg Intake: IV 50 / 50 100 / 100 50 / 50 Flexbumin 25% Inj 50 ML @ 60 50 / 50 50 / 50 50 / 50 mls/hr IV.SIG BID@0840,1740 [facility] Rx#:[id number] Ancef 2 GM Premix Inj 2 gm In 50 / 50 50 ml @ 0 mls/hr IV.SIG .STK- MED ONE Rx#:[id number] Oral 500 / 500 100 / 100 Output: Urine 2200 / 2200 750 / 750 Urine Amount (Catheter) 400 / 400 Indwelling Urethral Catheter 400 / 400 Other: Date of Last Bowel Movement 10/07/17 10/08/17 Narrative: GENERAL: This is a well-nourished, well-developed patient, in no apparent distress. CARDIOVASCULAR: Regular rate and rhythm without murmurs, gallops, or rubs. RESPIRATORY: Clear to auscultation. Breath sounds equal bilaterally. No wheezes , rales, or rhonchi. aspira pleural drain noted at left chest wall. GASTROINTESTINAL: Abdomen soft, non-tender, nondistended. Normal active bowel sounds MUSCULOSKELETAL: 1-2+ LE edema x b/l NEURO: Alert & Oriented x4 to person, place, time, situation. Moves all ext x4 - Urinary Catheter Management Indwelling Urethral Catheter Cath placed during this visit: yes Urethral indwelling: Yes Reason for continuing: Chronic Urinary Retention Insertion date: 09/29/17 Insertion time: 13:35 Results - Labs CBC & Chem 7: 10/08/17 04:30 10/08/17 04:30 Laboratory Results - last 24 hr 10/08/17 10/08/17 10/09/17 17:34 20:13 07:25 POC Glucose 189 H 197 H 182 H 10/09/17 12:15 POC Glucose 183 H Assessment and Plan - Assessment (1) Lung mass Code(s): R91.8 - Other nonspecific abnormal finding of lung field Status: Acute Plan: (1) Lung mass ICD Codes: R91.8 - Other nonspecific abnormal finding of lung field Status: Acute Plan: Lung mass with pleural effusion This is an 82-year-old male patient with an extensive tobacco abuse history presents to [facility] with complaints of shortness of breath times 5 days prior to that was treated for pneumonia in [place] -CT of the chest reviewed and reveals masslike area seen in the left upper lobe extending to the left hilar region with left mediastinal and hilar adenopathy and suspected hepatic metastasis. A primary central lung carcinoma would be suspected. Moderate left pleural effusion. Left adrenal gland enlargement. This is nonspecific. No adrenal or metastatic lesion could have this appearance. -Interventional radiology consulted for ultrasound-guided thoracentesis -Total volume of 2600 mL's of clear lópez fluid was removed 09/13/2017 -Post thoracentesis chest x-ray reveals no pneumothorax following left thoracentesis Pleural fluid LDH 424 pleural fluid total protein 3.1 Serum LDH 691 serum total protein 6.7 -Duonebs scheduled and as needed - D dimmer elevated, US BLE negative for DVT - VQ scan reviewed with radiology and felt to be neg for PE - cytology from pleural effusion negative for malignancy - Pt underwent Bronchoscopy (09/19/17) with Dr. Stephan Elizabeth (09/19/17) - irreg lesion nearly obstructing the left upper lobe bronchus - left lower bronchus with bronchitis changes. 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 - Pt, , and 2 daughters updated at the bedside regarding pathology results ( 09/24/17) - Case d/w Dr. Morin (09/24/17) - poor prognosis - possible one year survivability with palliative chemotherapy - chemotherapy 09/25/17 . chemo held due to tumor lysis and cain/ckd - CT A/P (09/23/17) 1. Large left pleural effusion with near complete consolidation of the left lung. 2. Multiple hypodensities scattered throughout the liver concerning for metasatic disease 3. Both adrenal glands are enlarged. 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 now resolved - s/p - rasburicase per Oncology for elevated uric acid. - s/p left chest tube on 10/01 for malignant pleural effusion - left chest tube converted to aspira pleural drain 10/08/17 - MARLEY hose - dvt prophylaxis. - supportive care - wound care for lower ext denuded skin/blisters. imani wraps placed. - family will support hospice if pt decides...but he wants to remain aggressive. - daily PT - Pt would benefit from SNF, but refusing SNF placement - walk test ordered - anticipate d/c to home in next 1-2 days with C and home PT (2) Bilateral lower extremity edema ICD Codes: R60.0 - Bilateral lower extremity edema - change to PO lasix - zaroxolyn - MARLEY hose (3) CAD (coronary artery disease) ICD Codes: I25.10 - CAD (coronary artery disease) Status: Chronic Plan: - coronary artery disease status post [place] and status post four-vessel CABG 2001 - ASA, pravachol, atenolol (4) Diabetes mellitus ICD Codes: E11.9 - Type 2 diabetes mellitus without complications Status: Chronic - resume amaryl - januvia - SSI (5) Tobacco abuse ICD Codes: Z72.0 - Tobacco use Plan: Patient counselled encouraged to abstain (6) Seizure ICD Codes: R56.9 - Unspecified convulsions Status: Chronic Plan: Continue patient's home phenytoin 200 mg AM and 100mg QHS (7) Hyperlipidemia ICD Codes: E78.5 - Hyperlipidemia, unspecified Status: Chronic Plan: Continue simvastatin 80 mg p.o. daily (8) Bladder cancer ICD Codes: C67.9 - Malignant neoplasm of bladder, unspecified Plan: bladder cancer status post cystoscopy with removal of tumor - Attending Attestation Patient examined. Assessment and plan formulated with Mel Hurtado PA-C. I agree with the above.
--- NOTE | 2017-10-09 16:15 | P.DCO ---
- Physical Therapy Order: Evaluate and treat - Occupational Therapy Order: Evaluate and treat - Home Health Nursing Order: Medical education, Signs/symptoms of disease process, Oxygen administration education, Medication education-adverse effect, Wound care and dressing changes (aspira pleural drain 10/08/17, LLE wound), Nursing assessment with vital signs - Weigh Tank Operator Order: To evaluate: Living conditions/environment, Support services - Certification I have seen patient Stephan Styles on 10/09/17. My clinical findings support the need for the requested home health care services because: Limited mobility due to disease progression, Patient has SOB, Deconditioned with increased weakness I certify that my clinical findings support that this patient is homebound because: Unsteady gait/balance, Unsafe to leave home unassisted
[2017-10-09] MEDS: Temazepam 15 MG Capsule PO SCH (21:29)
[2017-10-10] MEDS: Metoprolol Tartrate 25 MG Tablet PO SCH ×2 (05:08→13:54)
[2017-10-10] MEDS: Allopurinol 300 MG Tablet PO SCH (08:07)
[2017-10-10] MEDS: Phenytoin Sodium 100 MG Capsule PO SCH (08:07)
[2017-10-10] MEDS: Ferrous Sulfate 325 MG Tablet PO SCH (08:08)
--- NOTE | 2017-10-10 10:23 | P.DS ---
<Mel Hurtado W - Last Filed: 10/10/17 12:55> Date of admission: 09/13/17 14:44 Primary care physician: Rajinder Boyer MD Attending physician on discharge: Dylan Choi Anticipated date of discharge: 10/10/17 Brief History from admission: Patient is an 82-year-old male with history of coronary artery disease status post UT and status post four-vessel CABG 2001, hypertension, diabetes, peripheral vascular disease, hyperlipidemia, bladder cancer status post cystoscopy with removal of tumor and tobacco abuse. Patient presented to [facility] yesterday complaining of shortness of breath. He says he been short of breath the last 5 days. A couple of days before that he started to have cough and congestion. He has had some edema of his legs. He was visiting [place] and he went to an urgent care center there and was told he had pneumonia. He was put on Tessalon and Zithromax which she has taken without much response. He says he has not had trouble with his breathing before. Patient's reports that the patient has lost 50 pounds over the last 6 months and has had a poor appetite. Patient reports breathing is much better after thoracentesis, no longer having SOB. Patient reports he has been able to ambulate back and forth to the bathroom without difficulty. DS: Diagnosis - Discharge Diagnosis (1) Lung mass Status: Acute (2) CAD (coronary artery disease) Status: Chronic (3) Bilateral edema of lower extremity Status: Acute (4) Diabetes Status: Chronic (5) Hyperlipidemia Status: Chronic (6) Hx of seizure disorder Status: Chronic (7) Tobacco use Status: Chronic (8) Hematuria Status: Acute DS: Medications - Discharge Medications Prescriptions: albuterol sulfate 2.5 mg INHALATION QID #60 ml ferrous sulfate [FeroSul] 325 mg PO BID #60 tab ipratropium bromide 0.5 mg INHALATION Q6H #60 ml metoprolol tartrate 25 mg PO Q8H 30 Days #90 tab ondansetron 4 mg PO Q6H PRN #14 tab PRN Reason: Nausea Or Vomiting DS: Summary Hospital Course: (1) Lung mass ICD Codes: R91.8 - Other nonspecific abnormal finding of lung field Status: Acute Plan: Lung mass with pleural effusion This is an 82-year-old male patient with an extensive tobacco abuse history presents to [facility] with complaints of shortness of breath times 5 days prior to that was treated for pneumonia in [place] -CT of the chest reviewed and reveals masslike area seen in the left upper lobe extending to the left hilar region with left mediastinal and hilar adenopathy and suspected hepatic metastasis. A primary central lung carcinoma would be suspected. Moderate left pleural effusion. Left adrenal gland enlargement. This is nonspecific. No adrenal or metastatic lesion could have this appearance. -Interventional radiology consulted for ultrasound-guided thoracentesis -Total volume of 2600 mL's of clear lópez fluid was removed 09/13/2017 -Post thoracentesis chest x-ray reveals no pneumothorax following left thoracentesis Pleural fluid LDH 424 pleural fluid total protein 3.1 Serum LDH 691 serum total protein 6.7 -Duonebs scheduled and as needed - D dimmer elevated, US BLE negative for DVT - VQ scan reviewed with radiology and felt to be neg for PE - cytology from pleural effusion negative for malignancy - Pt underwent Bronchoscopy (09/19/17) with Dr. Stephan Elizabeth (09/19/17) - irreg lesion nearly obstructing the left upper lobe bronchus - left lower bronchus with bronchitis changes. 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 - Pt, , and 2 daughters updated at the bedside regarding pathology results ( 09/24/17) - Case d/w Dr. Morin (09/24/17) - poor prognosis - possible one year survivability with palliative chemotherapy - chemotherapy 09/25/17 . chemo held due to tumor lysis and cain/ckd - CT A/P (09/23/17) 1. Large left pleural effusion with near complete consolidation of the left lung. 2. Multiple hyposensitives scattered throughout the liver concerning for metasatic disease 3. Both adrenal glands are enlarged. 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 now resolved - s/p - rasburicase per Oncology for elevated uric acid. - s/p left chest tube on 10/01 for malignant pleural effusion - left chest tube converted to aspira pleural drain 10/08/17 - MARLEY yi - dvt prophylaxis. - supportive care - wound care for lower ext denuded skin/blisters. imani wraps placed. - family will support hospice if pt decides...but he wants to remain aggressive. - daily PT - Pt would benefit from SNF, but refusing SNF placement. Patient agrees to accept home healthcare - walk test ordered, patient will likely require home oxygen (2) Bilateral lower extremity edema - change to PO lasix - zaroxolyn - BMP 1 week after DC results to PCP and Dr. Morin - MARLEY yi (3) CAD (coronary artery disease) Status: Chronic Plan: - coronary artery disease status post UT and status post four-vessel CABG 2001 - ASA, pravachol, atenolol (4) Diabetes mellitus Status: Chronic - januvia - SSI (5) Tobacco abuse Plan: Patient counselled encouraged to abstain (6) Seizure Status: Chronic Plan: Continue patient's home phenytoin 200 mg AM and 100mg QHS (7) Hyperlipidemia Status: Chronic Plan: Continue simvastatin 80 mg p.o. daily (8) Bladder cancer Plan: bladder cancer status post cystoscopy with removal of tumor - Time Spent with Patient Total time spent providing and/or coordinating discharge services: Greater than 30 minutes Exam Vital signs: Vital Signs 10/09/17 10:15 10/09/17 12:00 10/09/17 18:00 Temperature 98.2 F 97.5 F L Pulse Rate 127 H 114 H Respiratory Rate 18 Blood Pressure 130/67 138/78 Pulse Oximetry 98 95 94 L Pulse Oximetry [Exertion on Room Air] Pulse Oximetry [Resting on Room Air] 10/09/17 19:10 10/09/17 20:00 10/09/17 21:34 Temperature 97.9 F Pulse Rate 95 H Respiratory Rate 16 Blood Pressure 135/72 Pulse Oximetry 94 L 96 Pulse Oximetry [Exertion on Room Air] 97 Pulse Oximetry [Resting on Room Air] 96 10/10/17 00:00 10/10/17 04:00 10/10/17 08:00 Temperature 97.8 F 98.3 F 97.7 F Pulse Rate 86 95 H 79 Respiratory Rate 15 16 18 Blood Pressure 124/65 125/57 L 114/51 L Pulse Oximetry 92 L 94 L 96 Pulse Oximetry [Exertion on Room Air] Pulse Oximetry [Resting on Room Air] Intake & Output 10/09/17 10/10/17 10/10/17 18:59 06:59 18:59 Intake Total 50 / 50 50 / 50 Output Total 800 / 800 425 / 425 Balance -750 / -750 -375 / -375 Weight 109.7 kg Intake: IV 50 / 50 50 / 50 Flexbumin 25% Inj 50 ML @ 60 50 / 50 50 / 50 mls/hr IV.SIG BID@0840,1740 FORMERLY [facility], [facility]–1983 Rx#:[id number] Output: Urine 425 / 425 Urine Amount (Catheter) 800 / 800 Indwelling Urethral Catheter 800 / 800 Other: Date of Last Bowel Movement 10/09/17 10/09/17 # Bowel Movements 1 Narrative: GENERAL: This is a well-nourished, well-developed patient, in no apparent distress. CARDIOVASCULAR: Regular rate and rhythm without murmurs, gallops, or rubs. RESPIRATORY: Clear to auscultation. Breath sounds equal bilaterally. aspira pleural drain noted at left chest wall. GASTROINTESTINAL: Abdomen soft, non-tender, nondistended. Normal active bowel sounds MUSCULOSKELETAL: 1-2+ LE edema x b/l NEURO: Alert & Oriented. Moves all ext x4 Results Procedures completed during hospitalization: -Interventional radiology consulted for ultrasound-guided thoracentesis -Total volume of 2600 mL's of clear lópez fluid was removed 09/13/2017 - Pt underwent Bronchoscopy (09/19/17) with Dr. Stephan Elizabeth (09/19/17) - irreg lesion nearly obstructing the left upper lobe bronchus - left lower bronchus with bronchitis changes. 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 - left thoracentesis (09/24) 1.9 liters removed - left chest tube converted to aspira pleural drain 10/08/17 Labs on day of discharge: Labs from last 24 hours 10/10/17 10/10/17 10/09/17 08:12 05:06 21:33 POC Glucose 188 H 176 H 212 H 10/09/17 10/09/17 17:29 12:15 POC Glucose 193 H 183 H - Impressions ITS Impressions Abdomen X-Ray 10/06/17 00:00 CONCLUSION: Minimal parenchymal changes left base. Mild gaseous distention of stomach Minimal transverse colon gas otherwise bowel gas pattern unremarkable. Chest X-Ray 10/07/17 08:00 CONCLUSION: 1. Stable left-sided chest tube in place with near resolution of left-sided pleural-parenchymal disease. 2. Minimal right lower lung zone airspace disease, likely atelectasis. Catheter Placement X-Ray 10/08/17 00:00 CONCLUSION: 1. Uncomplicated tunneled left sided Aspira pleural drain placement, as above. <Dylan Choi - Last Filed: 10/28/17 21:11> Date of admission: 09/13/17 14:44 Primary care physician: Rajinder Boyer MD DS: Diagnosis - Discharge Diagnosis (1) Lung mass Status: Acute DS: Summary Hospital Course: Patient examined. Assessment and plan formulated with Mel Hurtado PA-C. I agree with the above. - Time Spent with Patient Total time spent providing and/or coordinating discharge services: Results - Impressions ITS Impressions Abdomen X-Ray 10/06/17 00:00 CONCLUSION: Minimal parenchymal changes left base. Mild gaseous distention of stomach Minimal transverse colon gas otherwise bowel gas pattern unremarkable. Chest X-Ray 10/07/17 08:00 CONCLUSION: 1. Stable left-sided chest tube in place with near resolution of left-sided pleural-parenchymal disease. 2. Minimal right lower lung zone airspace disease, likely atelectasis. Catheter Placement X-Ray 10/08/17 00:00 CONCLUSION: 1. Uncomplicated tunneled left sided Aspira pleural drain placement, as above. Discharge Plan - Discharge Order Discharge Orders: Discharge Order (Routine); Ordered 10/10/17 Ordered By: Mel Hurtado - Discharge Details Anticipated Discharge Date: 10/10/17 - Physicians Team Primary Care Provider: Rajinder Boyer Attending Provider: Dylan Choi Other Providers: Dennis Saenz MD ; Cris Morin ; Brien Tesfaye MD ; [facility]Ag[facility] ; Stephan Elizabeth MD ; [facility],[place] - Rxs /Orders / Referrals /Forms Prescriptions: New albuterol sulfate 2.5 mg /3 mL (0.083 %) Solution For Nebulization 2.5 mg INHALATION QID Qty: 60 RF: 0 ferrous sulfate [FeroSul] 325 mg (65 mg iron) Tablet 325 mg PO BID Qty: 60 RF: 0 ipratropium bromide 0.02 % Solution 0.5 mg INHALATION Q6H Qty: 60 RF: 0 metoprolol tartrate 25 mg Tablet 25 mg PO Q8H 30 Days Qty: 90 RF: 0 ondansetron 4 mg Tablet,Disintegrating 4 mg PO Q6H PRN (Reason: Nausea Or Vomiting) Qty: 14 RF: 0 Continue aspirin 81 mg Tablet,Chewable 81 mg PO DAILY metformin 1,000 mg Tablet 1,000 mg PO BIDPC phenytoin sodium extended 100 mg Capsule 100 mg PO HS phenytoin sodium extended 200 mg Capsule 200 mg PO DAILY sitagliptin 100 mg Tablet 100 mg PO DAILY terazosin 10 mg Capsule 10 mg PO HS Discontinued amlodipine 5 mg Tablet 5 mg PO BID atenolol 50 mg Tablet 50 mg PO DAILY cilostazol 100 mg Tablet 200 mg PO DAILY cilostazol 100 mg Tablet 100 mg PO HS glimepiride 2 mg Tablet 2 mg PO DAILY glimepiride 4 mg Tablet 4 mg PO QAM lisinopril 20 mg Tablet 20 mg PO BID multivitamin with minerals [Multiple Vitamin-Minerals] Tablet 1 tab PO DAILY multivitamin [Multiple Vitamins] Tablet 1 tab PO DAILY [id number]-fish oil-D3 [Fish Oil-Vit D3] 360 mg-1,200 mg -1,000 unit Capsule 1 cap PO BID simvastatin 80 mg Tablet 80 mg PO DAILY No Action amlodipine 5 mg Tablet 5 mg PO BID aspirin [Aspir-81] 81 mg Tablet,Delayed Release (Dr/Ec) 81 mg PO DAILY cilostazol 100 mg Tablet 1 tab PO HS ferrous sulfate 325 mg (65 mg iron) Tablet 325 mg PO BID fish,bora,flax oils-om3,6,9no1 [[place] 3-6-9 Complex] 400-400-400 mg Capsule 1 cap PO DAILY furosemide [Lasix] 40 mg Tablet 40 mg PO BID glimepiride glimepiride 2 mg Tablet 2 mg PO QAM lisinopril 20 mg Tablet 20 mg PO DAILY metolazone 2.5 mg Tablet 1 tab PO BID simvastatin 80 mg Tablet 80 mg PO DAILY Ambulatory Orders / Order Sets / DME: Nebulizer Adult Kit (1 kit) (Routine) Location: Determined by Patient Ordered By: Mel Hurtado Basic Metabolic Panel (Routine) Timeframe: 1 Week Location: Determined by Patient Ordered By: Mel Hurtado Referrals: Rajinder Boyer MD [Primary Care Provider] - See Instructions (follow up in 1 week) Cris Morin [Physician] - See Instructions (follow up in 1 week) - Discharge Instructions Additional Instructions: Pt may shower, no tub baths, hot tubs or swimming pools for one week. Be aware of signs of infection (fever, chills, purulent drainage at incision site, excessive redness or swelling) Should any of these symptoms occur contact your doctor immediately
[2017-10-10] MEDS: Insulin NovoLOG Aspart Correctional Sugar Inj SQ SCH ×2 (13:40→13:52)
[2017-10-10] MEDS: Nystatin 100,000 UNITS/GM Powder 15 GM Bottle TOPICAL SCH (13:51)
[2017-10-10] MEDS: Furosemide 40 MG Tablet PO SCH (13:53)
--- NOTE | 2017-10-10 17:34 | ECG ---
Date Performed: 10/09/2017 Time Performed: 16:04:39 PTAGE: 82 years EKG: ATRIAL FIBRILLATION MARKED RIGHT AXIS DEVIATION RIGHT BUNDLE BRANCH BLOCK POSSIBLE ANTERIOR MYOCARDIAL INFARCTION , PROBABLY OLD INFERIOR MYOCARDIAL INFARCTION , PROBABLY OLD ABNORMAL ECG PREVIOUS TRACING : 09/30/2017 05.50 Since the previous tracing, no significant change noted DOCTOR: Sammie Capone Interpretating Date/Time 10/10/2017 17:32:39
== END 2017-10-10 16:37 | disposition home health service (06) ==
LOC: HCIN 14:44
PROVIDERS: ADMIT Hospitalist; ATTEND Hospitalist